=== PATIENT | female | born 1930 | race Two or more races ===

== ENCOUNTER 2019-09-06 10:44 | Inpatient (IN) | payer OTHER, MEDICARE ==
[~2019-09-06] VITALS: Ht 167.6 cm; Wt 61.2 kg
[~2019-09-06 10:44] MED LIST: AMIODARONE HCL200 MG ORAL; AMIODARONE HCL400 M1 ORAL; AMLODIPINE BES2.5 MG ORAL; ASPIRIN EC81 MG ORAL; ATORVASTATIN CA10 MG ORAL; ATORVASTATIN CA20 MG ORAL; CRESTOR10 M1 ORAL; FENOFIBRIC ACI105 MG PO; FERROUS SULFAT325 MG ORAL; GLIMEPIRIDE1 MG ORAL; KEFLEX500 MG ORAL; LISINOPRIL5 MG ORAL; LOPRESSOR25 M1 ORAL; METOPROLOL SUCC50 MG ORAL; OYSCO 500+D TA1 EAC1 PO; SYNTHROID25 MCG ORAL; [UNRECOGNIZED DRUG - OTHER]
--- NOTE | 2019-09-06 10:52 | NUR ---
ED Nurse Note: Pt brought in by ambulance c/o lower abdominal pain 03/22 that radiates to her lower back x 2 weeks. Son is at bedside. Respirations even and unlabored on room air. Vitals stable as documented. Pt placed in monitored bed. Addendum: 09/06/19 at 1109 by BDUTTON Pt denies nausea/vomiting/diarrhea
[2019-09-06] MEDS ORDERED: IBUPROFEN600 MG ORAL (10:56)
[2019-09-06 11:12] VITALS: BP 128/73
--- NOTE | 2019-09-06 11:16 | Emergency Room Report ---
History of Present Illness General Chief Complaint: Abdominal Pain Source: Patient, EMS Present Illness HPI Patient is a 89-year-old female presents after increased left-sided flank pain. Patient had onset of symptoms gradually over the past few days. She been having nonproductive cough for approximate 1 week. Pain is worse with coughing. She has had intermittent episodes of constipation but had been having normal bowel movements lately. No vomiting. Pain is worse with movement. She is normally only able to ambulate with assistance. Patient had prior history of hip surgery and had prior history of hypothyroidism as well as diabetes. She takes amiodarone. Allergies: Coded Allergies: No Known Allergies (Unverified , 07/26/15) Patient History Past Medical History: see triage record Reviewed Nursing Documentation: PMH: Agreed; PSxH: Agreed Nursing Documentation-PMH Past Medical History: No History, Except For Hx Cardiac Problems: Yes Hx Hypertension: Yes Hx Pacemaker: Yes Hx Diabetes: Yes Hx Cancer: No Hx Gastrointestinal Problems: Yes Hx Neurological Problems: No Review of Systems All Other Systems: negative except mentioned in HPI Physical Exam Vital Signs Date Time Temp Pulse Resp B/P (MAP) Pulse Ox O2 Delivery O2 Flow Rate FiO2 09/06/19 10:40 97.5 71 18 149/75 (99) 99 Room Air Sp02 EP Interpretation: reviewed, normal General Appearance: normal inspection, alert, GCS 15, Chronically Ill Head: atraumatic ENT: normal ENT inspection, hearing grossly normal, normal voice Neck: normal inspection, full range of motion, supple, no bony tend Respiratory: normal inspection, lungs clear, normal breath sounds, no respiratory distress, no retraction, no wheezing Cardiovascular #1: regular rate, rhythm, no edema Gastrointestinal: normal inspection, normal bowel sounds, soft, no guarding, no hernia, tenderness - left lower abdomen, no hernia, surgical scar well healed Genitourinary: no CVA tenderness Musculoskeletal: normal inspection, back normal, normal range of motion Neurologic: alert, responsive, speech normal, normal inspection Psychiatric: normal inspection, judgement/insight normal, mood/affect normal Medical Decision Making Diagnostic Impression: Primary Impression: Closed compression fracture of lumbosacral spine Additional Impression: Urinary tract infection ER Course Patient presented for left lower abdominal pain and low back pain. Differential diagnosis include was not limited to fracture, diverticulitis, kidney stone, colitis among others. Because of complexity of patient's case laboratory tests and imaging studies were ordered. Patient was noted to have previous hip surgery. CT imaging read by radiology showed some cardiomegaly with bilateral pneumonitis. L2-L4 have age-indeterminate fractures. Patient was given IV fluids as well as IV antibiotics. Patient's lactic acid level was noted to be elevated initially. This was somewhat improved on repeat exam.Dr. Scott Gavin was contacted for inpatient management Labs Test 09/06/19 10:59 09/06/19 11:00 09/06/19 12:59 White Blood Count 6.5 K/UL (4.8-10.8) Red Blood Count 4.32 M/UL (4.20-5.40) Hemoglobin 14.3 G/DL (12.0-16.0) Hematocrit 39.3 % (37.0-47.0) Mean Corpuscular Volume 91 FL (80-99) Mean Corpuscular Hemoglobin 33.1 PG (27.0-31.0) Mean Corpuscular Hemoglobin Concent 36.4 G/DL (32.0-36.0) Red Cell Distribution Width 11.6 % (11.6-14.8) Platelet Count 179 K/UL (150-450) Mean Platelet Volume 4.8 FL (6.5-10.1) Neutrophils (%) (Auto) 69.7 % (45.0-75.0) Lymphocytes (%) (Auto) 19.8 % (20.0-45.0) Monocytes (%) (Auto) 7.6 % (1.0-10.0) Eosinophils (%) (Auto) 2.1 % (0.0-3.0) Basophils (%) (Auto) 0.8 % (0.0-2.0) Prothrombin Time 10.1 SEC (9.30-11.50) Prothromb Time International Ratio 0.9 (0.9-1.1) Activated Partial Thromboplast Time 24 SEC (23-33) Sodium Level 141 MMOL/L (136-145) Potassium Level 3.2 MMOL/L (3.5-5.1) Chloride Level 105 MMOL/L (98-107) Carbon Dioxide Level 21 MMOL/L (21-32) Anion Gap 15 mmol/L (5-15) Blood Urea Nitrogen 21 mg/dL (7-18) Creatinine 1.1 MG/DL (0.55-1.30) Estimat Glomerular Filtration Rate mL/min (>60) Glucose Level 325 MG/DL (74-106) Calcium Level 8.7 MG/DL (8.5-10.1) Total Bilirubin 0.9 MG/DL (0.2-1.0) Aspartate Amino Transf (AST/SGOT) 27 U/L (15-37) Alanine Aminotransferase (ALT/SGPT) 27 U/L (12-78) Alkaline Phosphatase 111 U/L (46-116) Troponin I 0.019 ng/mL (0.000-0.056) Total Protein 7.4 G/DL (6.4-8.2) Albumin 3.9 G/DL (3.4-5.0) Globulin 3.5 g/dL Albumin/Globulin Ratio 1.1 (1.0-2.7) Lipase 110 U/L (73-393) Urine Color Yellow Urine Appearance Clear Urine pH 6 (4.5-8.0) Urine Specific [place] 1.015 (1.005-1.035) Urine Protein 2+ (NEGATIVE) Urine Glucose (UA) 2+ (NEGATIVE) Urine Ketones 1+ (NEGATIVE) Urine Blood 4+ (NEGATIVE) Urine Nitrite Negative (NEGATIVE) Urine Bilirubin 1+ (NEGATIVE) Urine Ictotest Negative (NEGATIVE) Urine Urobilinogen 1 MG/DL (0.0-1.0) Urine Leukocyte Esterase 3+ (NEGATIVE) Urine RBC 2-4 /HPF (0 - 2) Urine WBC 5-10 /HPF (0 - 2) Urine Squamous Epithelial Cells Few /LPF (NONE/OCC) Urine Bacteria Moderate /HPF (NONE) Lactic Acid Level 2.20 mmol/L (0.66-2.22) Last Vital Signs Date Time Temp Pulse Resp B/P (MAP) Pulse Ox O2 Delivery O2 Flow Rate FiO2 09/06/19 10:40 97.5 71 18 149/75 (99) 99 Room Air Status: unchanged Disposition: ADMITTED INPATIENT Condition: Stable Damien Crowe MD Sep 06, 2019 11:16
[2019-09-06 11:27] LABS: BASOPHILS % (AUTO) 0.8 % (0.0-2.0); EOSINOPHILS % (AUTO) 2.1 % (0.0-3.0); HEMATOCRIT 39.3 % (37.0-47.0); HEMOGLOBIN 14.3 G/DL (12.0-16.0); LYMPHOCYTES % (AUTO) 19.8 % (20.0-45.0); MEAN CORPUSCULAR VOLUME 91 FL (80-99); MONOCYTES % (AUTO) 7.6 % (1.0-10.0); NEUTROPHILS % (AUTO) 69.7 % (45.0-75.0); PLATELET COUNT 179 K/UL (150-450); RED BLOOD COUNT 4.32 M/UL (4.20-5.40); RED CELL DISTRIBUTION WIDTH 11.6 % (11.6-14.8); WHITE BLOOD COUNT 6.5 K/UL (4.8-10.8)
[2019-09-06 11:29] LABS: APPEARANCE,URINE CLEAR; BILIRUBIN, URINE 1+ (NEGATIVE); GLUCOSE, URINE (UA) 2+ (NEGATIVE); KETONES,URINE 1+ (NEGATIVE); LEUKOCYTE ESTERASE ,URINE 3+ (NEGATIVE); NITRITE,URINE NEGATIVE (NEGATIVE); PH,URINE 6 (4.5-8.0); PROTEIN,URINE 2+ (NEGATIVE); UROBILINOGEN,URINE 1 MG/DL (0.0-1.0)
[2019-09-06] MEDS ORDERED: Morphine Sulfate 2mg/ml Inj(IV/IM USE ONLY) IVP ONE (11:30)
[2019-09-06] MEDS ORDERED: Omnipaque-300 100ml vial INJ PRN (11:30)
[2019-09-06 11:33] LABS: INR 0.9 (0.9-1.1)
[2019-09-06 11:41] LABS: ANION GAP 15 mmol/L (5-15); BLOOD UREA NITROGEN 21 mg/dL (7-18); CALCIUM 8.7 MG/DL (8.5-10.1); CARBON DIOXIDE 21 MMOL/L (21-32); CHLORIDE 105 MMOL/L (98-107); CREATININE 1.1 MG/DL (0.55-1.30); POTASSIUM 3.2 MMOL/L (3.5-5.1); SODIUM 141 MMOL/L (136-145)
--- NOTE | 2019-09-06 11:43 | NUR ---
ED Nurse Note: Contrast consent signed by pt's son and witnessed by RN
[2019-09-06 11:45] LABS: ALANINE AMINOTRANSFERASE 27 U/L (12-78); ALBUMIN 3.9 G/DL (3.4-5.0); ALBUMIN/GLOBULIN RATIO 1.1 (1.0-2.7); ALKALINE PHOSPHATASE 111 U/L (46-116); ASPARTATE AMINO TRANSFERASE 27 U/L (15-37); BILIRUBIN,TOTAL 0.9 MG/DL (0.2-1.0)
[2019-09-06 11:49] LABS: COLOR,URINE YELLOW
[2019-09-06] MEDS ORDERED: cefTRIAXone 1 GM in NS 55 ML IVPB ONE (12:15)
--- NOTE | 2019-09-06 12:15 | NUR ---
ED Nurse Note: Pt in CT
[2019-09-06 12:50] VITALS: BP 161/79
--- NOTE | 2019-09-06 12:50 | Diagnostic Imaging Report ---
EXAM: CT Abdomen and Pelvis With Intravenous Contrast CLINICAL HISTORY: ABD PAIN TECHNIQUE: Axial computed tomography images of the abdomen and pelvis with intravenous contrast. CTDI is 12.3 mGy and DLP is 688.5 mGy-cm. One or more of the following dose reduction techniques were used: automated exposure control, adjustment of the mA and/or kV according to patient size, use of iterative reconstruction technique. COMPARISON: No relevant prior studies available. FINDINGS: Lung bases: Basilar pneumonitis. Heart: Cardiomegaly and pacemaker. ABDOMEN: Liver: Nonspecific enhancing lesion at the dome of the liver, measures approximately 1 cm. Small low-attenuation focus in the left lobe. Gallbladder and bile ducts: Cholecystectomy. Pancreas: Unremarkable. Spleen: Unremarkable. Adrenals: Unremarkable. Kidneys and ureters: Unremarkable. No hydronephrosis. Stomach and bowel: No rio mural thickening. Nonobstructive bowel gas pattern. PELVIS: Appendix: Appendix not identified. Bladder: Unremarkable. Reproductive: Unremarkable. ABDOMEN and PELVIS: Intraperitoneal space: Unremarkable. Bones/joints: Left hip fixation. Tarlov cysts in the sacrum. Old fracture of the left inferior and superior pubic rami. Old left rib fractures. Fractures of the L2-L4 vertebral bodies with probable acute component at the L4 level Soft tissues: Unremarkable. Vasculature: Unremarkable. No abdominal aortic aneurysm. Lymph nodes: No enlarged lymph nodes. IMPRESSION: Appendix not identified. No colitis.
[2019-09-06 14:56] VITALS: BP 164/90
--- NOTE | 2019-09-06 17:54 | NUR ---
ED Nurse Note: Report given to Isaiah on 2E
[2019-09-06] MEDS ORDERED: Morphine Sulfate 4mg/ml Inj (IV USE ONLY) IVP PRN (18:15)
[2019-09-06] MEDS ORDERED: Zolpidem 5mg tab ORAL PRN (18:15)
--- NOTE | 2019-09-06 18:24 | History & Physical ---
History and Physical History & Physicial HP dictated # [id number] Scott Gavin MD Sep 06, 2019 18:24
--- NOTE | 2019-09-06 18:30 | NUR ---
ED Nurse Note: Pt transferred safely to 2E on car wrecker.
[2019-09-06 19:00] VITALS: BP 153/93
--- NOTE | 2019-09-06 20:00 | NUR ---
NURSE NOTES: Report received from Kasandra GILBERT. Patient is observed in bed, awake, alert, oriented, and able to make needs known. Respiratory even and unlabored. Patient is complaining of abdominal pain; will address as appropriate. Bed is in lowest position with side rails up x2 and brakes are engaged. Encouraged patient to use call light when in need of assistance, pt verbalized understanding. Will continue to monitor.
[2019-09-06] MEDS: Morphine Sulfate 2mg/ml Inj(IV/IM USE ONLY) IVP PRN (20:02)
[2019-09-06] MEDS: NovoLOG Insulin Flexpen SUBQ SCH (21:28)
[2019-09-06] MEDS: Zoysn 3.37gm in NS 100ML IVPB SCH (21:55)
[2019-09-07] VITALS: BP 160/95
[2019-09-07] MEDS: Morphine Sulfate 2mg/ml Inj(IV/IM USE ONLY) IVP PRN (01:40)
--- NOTE | 2019-09-07 02:11 | History and Physical Report ---
DATE OF ADMISSION: 09/06/2019 CHIEF COMPLAINT: Abdominal pain. HISTORY OF PRESENT ILLNESS: This is an 89-year-old female, who lives at home. Son who is at bedside tells me that for the past 2 weeks, she has had problems with lower abdominal pain and also low back pain and unable to move around. She usually walks with a walker, but it has been difficult. Few years ago, she had a fall when she fractured her left hip and left arm and she underwent surgery. Since then, she has been walking with a walker. The patient was seen in the emergency room and was found to have urinary tract infection and admitted. PAST MEDICAL HISTORY: Includes history of hypothyroidism and diabetes mellitus. The patient is status post pacemaker and history of hypertension. MEDICATIONS: Reviewed in the EMR. ALLERGIES: No known drug allergies. SOCIAL HISTORY: No history of smoking or alcohol abuse. REVIEW OF SYSTEMS: As above. PHYSICAL EXAMINATION: GENERAL: The patient is an elderly female, in no acute distress. VITAL SIGNS: Blood pressure 129/75, pulse is 71, respiratory rate 18, and temperature 97.5. HEENT: [place] conjunctivae. Anicteric sclerae. NECK: Supple. LUNGS: Clear to auscultation. HEART: S1 and S2 without murmurs or rubs. ABDOMEN: Soft. There is some tenderness in the lower abdomen. EXTREMITIES: No cyanosis or edema. LABORATORY FINDINGS: The chemistry panel shows a serum sodium 141, potassium 3.2, chloride 105, carbon dioxide 21, BUN is 21, and creatinine 1.1. Blood sugar is 325. The UA shows 5 to 10 wbc's per high-power field with moderate bacteria. ASSESSMENT: This is an 89-year-old female, who is admitted with abdominal pain. She has urinary tract infection. She may also have some degenerative joint disease of the spine. As a matter of fact, a CAT scan, which was done in the emergency room of the abdomen showed fracture of the L2-L4 vertebral bodies with probable acute component at the L4 level. So, she may have also pain in her lower back because of these fractures. PLAN: The patient will be on pain medications. Physical therapy will be ordered. She will be on antibiotics. GI consultation will be obtained as well as Neurology. Laboratories will be followed and further adjustment will be made in the patient's regimen. Scott Gavin M.D. DR: JOSE ALEJANDRO JOB#: [id number] CC: MONA
--- NOTE | 2019-09-07 03:46 | NUR ---
NURSE NOTES: Contacted Dr. Gavin regarding patient's elevated blood pressure of 172/98 and episodes of emesis x2. Awaiting call back.
--- NOTE | 2019-09-07 03:50 | NUR ---
NURSE NOTES: Primary MD called back. No new orders noted at this time.
[2019-09-07 03:57] VITALS: BP 172/98
[2019-09-07] MEDS: Zoysn 3.37gm in NS 100ML IVPB SCH ×3 (05:57→21:14)
[2019-09-07] MEDS: NovoLOG Insulin Flexpen SUBQ SCH ×4 (06:00→21:15)
--- NOTE | 2019-09-07 06:33 | NUR ---
NURSE NOTES: Patient is asleep but arousable by voice. Denies pain at this time. Will continue to monitor.
--- NOTE | 2019-09-07 07:27 | NUR ---
HAND-OFF: Report given to Wendy GILBERT. Patient is in stable condition. Endorsed plan of care.
--- NOTE | 2019-09-07 08:10 | NUR ---
NURSE NOTES: pt in bed having breakfast. Aox4. pt reports no pain. pt on cardia monitor no signs of cardiac or respiratory distress at this time. Bed in lowest position. Call light within reach. Will continue to follow plans of care.
[2019-09-07 08:20] VITALS: BP 140/79
[2019-09-07 09:01] LABS: ANION GAP 13 mmol/L (5-15); BLOOD UREA NITROGEN 10 mg/dL (7-18); CALCIUM 8.3 MG/DL (8.5-10.1); CARBON DIOXIDE 23 MMOL/L (21-32); CHLORIDE 105 MMOL/L (98-107); CHOLESTEROL 143 MG/DL (< 200); CREATININE 0.8 MG/DL (0.55-1.30); HDL CHOLESTEROL 55 MG/DL (40-60); SODIUM 141 MMOL/L (136-145); TRIGLYCERIDES 113 MG/DL (30-150)
[2019-09-07 09:02] LABS: POTASSIUM 2.6 MMOL/L (3.5-5.1)
--- NOTE | 2019-09-07 13:02 | General Progress Note ---
Assessment/Plan Problem List: (1) Closed compression fracture of lumbosacral spine ICD Codes: S32.000A - Wedge compression fracture of unspecified lumbar vertebra , initial encounter for closed fracture SNOMED: 38964350, 739172640 (2) DM (diabetes mellitus) ICD Codes: E11.9 - Type 2 diabetes mellitus without complications SNOMED: 43858107 (3) Degenerative joint disease (DJD) of lumbar spine ICD Codes: M47.816 - Spondylosis without myelopathy or radiculopathy, lumbar region SNOMED: 863462819 (4) Hypothyroidism ICD Codes: E03.9 - Hypothyroidism, unspecified SNOMED: 35725690 (5) HTN (hypertension) ICD Codes: I10 - Essential (primary) hypertension SNOMED: 64550047 (6) Pacemaker ICD Codes: Z95.0 - Presence of cardiac pacemaker SNOMED: 428502111 (7) Urinary tract infection ICD Codes: N39.0 - Urinary tract infection, site not specified SNOMED: 46230365 (8) Hypokalemia ICD Codes: E87.6 - Hypokalemia SNOMED: 08909974 Assessment/Plan: abxs SSI follow labs Nuero consult discussed with pt and family and RN replete K Subjective Allergies: Coded Allergies: No Known Allergies (Unverified , 07/26/15) Subjective abd pain better still with back pain Objective Last 24 Hour Vital Signs Date Time Temp Pulse Resp B/P (MAP) Pulse Ox O2 Delivery O2 Flow Rate FiO2 09/07/19 08:20 97.7 72 20 140/79 (99) 98 09/07/19 03:57 98.5 80 18 172/98 (122) 96 09/07/19 03:48 70 09/07/19 00:00 98.0 75 18 160/95 (116) 96 09/06/19 23:59 70 09/06/19 21:00 Room Air 09/06/19 20:14 70 09/06/19 19:00 97.8 70 18 153/93 (113) 96 09/06/19 18:29 98.4 70 18 148/110 99 Room Air 09/06/19 14:56 74 18 164/90 99 Room Air Intake and Output 09/06/19 09/07/19 19:00 07:00 Intake Total 1555 ml Balance 1555 ml Intake IV Total 1555 ml # Voids 2 Laboratory Tests 09/06/19 12:59: Lactic Acid Level 2.20 09/07/19 07:04: Sodium Level 141, Potassium Level 2.6*L, Chloride Level 105, Carbon Dioxide Level 23, Anion Gap 13, Blood Urea Nitrogen 10, Creatinine 0.8, Estimat Glomerular Filtration Rate , Glucose Level 234H, Hemoglobin A1c 7.2H, Calcium Level 8.3L, Triglycerides Level 113, Cholesterol Level 143, LDL Cholesterol 70, HDL Cholesterol 55, Cholesterol/HDL Ratio 2.6L, Thyroid Stimulating Hormone (TSH ) 2.490 Height (Feet): 5 Height (Inches): 6.00 Weight (Pounds): 135 Cardiovascular: normal rate Respiratory/Chest: lungs clear Abdomen: non tender, soft Edema: no edema noted Generalized Scott Gavin MD Sep 07, 2019 13:01
--- NOTE | 2019-09-07 14:00 | Consultation ---
DATE OF CONSULTATION: 09/07/2019 CONSULTING PHYSICIAN: Taurus Bonilla M.D. CHIEF COMPLAINT: Abdominal pain. HISTORY OF PRESENT ILLNESS: This is an 89-year-old female who was brought from home that she has been having some abdominal pain and lower back pain for last 2 weeks or so. She has prior history of fall and pelvic fracture in the past. At this time, the patient denies any nausea or vomiting. Denies any dysphagia. Denies any odynophagia. When I examined her or asked where is the pain, states mainly in the back. PAST MEDICAL HISTORY: 1. Hypothyroidism. 2. Diabetes. 3. History of pacemaker placement. 4. Hypertension. 5. History of pelvic fracture. 6. Cholecystectomy. ALLERGIES: No known drug allergies. MEDICATIONS: Please see medication reconciliation list. SOCIAL HISTORY: The patient denies any tobacco, alcohol, or drug abuse. PAST SURGICAL HISTORY: Cholecystectomy. REVIEW OF SYSTEMS: A 10-point review of systems was performed. Pertinent positives in HPI. PHYSICAL EXAMINATION: VITAL SIGNS: Temperature is 98.5, pulse is 80, respirations 18, blood pressure is 172/98. HEENT: Normocephalic, atraumatic. Sclerae anicteric. NECK: Supple. No evidence of obvious lymphadenopathy. CARDIOVASCULAR: Regular rate and rhythm. Plus S1 and S2. LUNGS: Clear to auscultation bilaterally. ABDOMEN: Positive bowel sounds. Soft and nontender. No rebound. No guarding. No peritoneal sign. EXTREMITIES: No cyanosis, no clubbing, no edema. LABORATORY DATA: White count is 6.5, hemoglobin 14, hematocrit 39, platelet count is 179. Chem-7 sodium 141, potassium 3.2, BUN is 21, creatinine is 1.1. ASSESSMENT AND PLAN: This is an 89-year-old female admitted to the hospital with mainly pain. Seems that her pain is mostly in the back area. At this time, the patient does not have any alarming sign and symptoms. No abnormal liver function tests. No anemia. CT of the abdomen and pelvis did not show any acute intra-abdominal process. At this time, we will recommend continue on diet of 1800 ADA diet, monitor her blood sugar. Continue on Protonix, which is ordered by primary care physician. May need a bowel regimen including Colace and MiraLAX if the patient complains of constipation. The patient is to worked up for the complaint of back pain. We will follow on daily basis and make further recommendation as we go along. Taurus Bonilla M.D. DR: AGUILA JOB#: [id number] CC:
--- NOTE | 2019-09-07 14:42 | Consultation ---
Consult Note Consult Note NEUROLOGY CONSULTATION HISTORY Ms. Tori Silveira is an 89-year-old, right- handed, lady, who does have a past history of hypertension, diabetes mellitus, hypothyroidism, ago during which she fractured her left upper and lower extremities, pacemaker implantation for reasons that are unknown to us, and progressive gait problems. Recently she has also been complaining of increasing low back pain and she was hospitalized for worsening low back and abdominal pain. On being evaluated she was found to have a urinary tract infection and is being treated for that. Since she had her left upper and lower extremity fracture a few years ago she has only been doing minimal walking. She complains of pain in her back, weakness in the legs, and poor balance as a result of which she prefers not to walk. When asked where exactly the pain in the back is she localizes it to the lower lumbar region. She denies any problems with controlling bowel or bladder or any other neurological symptoms. When the radiologist read her chest and abdomen CT scan, fractures of the L2-L4 vertebral bodies with probable acute component at the L4 level was noted. PAST HISTORY: Hypertension, diabetes mellitus, hypothyroidism, ago during which she fractured her left upper and lower extremities, pacemaker implantation for reasons that are unknown to us, and progressive gait problems. FAMILY HISTORY: Hypertension and diabetes mellitus and other family members. PERSONAL HISTORY: Home: She lives at home with family members. Work: She is a retired housewife. Habits: There is no history of alcohol tobacco or illicit drug use. PHYSICAL EXAMINATION: GENERAL: She is a well-developed, well-nourished, pleasant, lady, lying in bed, in no acute distress. VITAL SIGNS: Pulse: 72/min Blood pressure: 140/79 mmHg. Respirations: 20/min Temperature: 97.7 F HEAD: Normocephalic and atraumatic. NECK: No neck rigidity was observed, she did have decreased range of motion involving the neck. EENT examination: Benign SPINE: She had mild generalized tenderness over the entire spine most marked in the lower lumbar region. There was marked decrease in range of motion in the entire spine. NEUROLOGICAL EXAMINATION: MENTAL STATUS EXAMINATION: She was awake and alert. She was oriented to self, hospital, and August 2019. She did not know the name of the hospital or the date. She was able to recall 3/3 words immediately but could only remember 2/3 after 1 minute and 3 minutes even on the third trial. She knew that Rain was president but could not remember presidents prior to Trump. Her mathematical skills were impaired. Her visuospatial function was also impaired. SPEECH: She had a mild dysarthria. It should be noted that numerous teeth were missing. LANGUAGE: She was able to comprehend and express herself relatively well in [place]. CRANIAL NERVE EXAMINATION: II: The visual padron were intact on confrontation testing. III, IV & : The external ocular movements were full and the pupils 3 mm in diameter equal round regular and reactive sluggishly to light. V: She had normal facial sensations and the temporales, masseters, and pterygoids, functioned normally. VII: She had normal facial expressions and no facial asymmetry. VIII: Hearing was markedly diminished bilaterally she did wear a right hearing aid. She had no nystagmus. IX: The palate moves symmetrically on phonation. X: She had no hoarseness of voice. XI: The sternocleidomastoids and trapezii functioned well. XII: The tongue was in the midline without any fasciculations or atrophy. MOTOR SYSTEM: The tone was normal in all 4 extremities. Examination of muscle mass revealed generalized muscle wasting most marked in the distal lower extremities. Examination of power revealed G 5/5 except for G 4++/5 in the finger extensors, G 4/5 in the iliopsoas, G 4+/5 in the toe extensors and ankle dorsiflexors. The effort was suboptimal and thus the accuracy of these findings is not certain. SENSORY EXAMINATION: She was able to discern between pinprick and light touch all over her body. She was unable to cooperate further sensory modalities. REFLEXES: Trace+ and bilaterally symmetrical at the biceps triceps and brachioradialis. 0 at both knees and ankles. The plantar responses were flexor. COORDINATION: She performed xpijni-qk-[id number] testing slowly but not in the dysmetric manner. She was unable to perform [id number]-ijeg testing. STANCE: She stood up with support on both sides. GAIT: She took a few steps with support on both sides. DIAGNOSTIC IMPRESSION: 1. Ms. Tori Silveira is an 89-year-old, right-handed, lady , who does have a past history of hypertension, diabetes mellitus, hypothyroidism, ago during which she fractured her left upper and lower extremities, pacemaker implantation for reasons that are unknown to us, and progressive gait problems. 2. Recently she has also been complaining of increasing low back pain and she was hospitalized for worsening low back and abdominal pain. On being evaluated she was found to have a urinary tract infection and is being treated for that. 3. On neurological examination, at this time, she does have problems with orientation, recent and remote memory, visuospatial function, and higher cognitive function. She also has a paraparesis involving the proximal muscles more than the distal muscles and in addition mild finger extensor weakness bilaterally. She is able to discern between pinprick and light touch but is unable to cooperate further sensory modalities. The deep tendon reflexes are significantly diminished in the upper extremities and lost in the lower extremities. She needs support on both sides to stand up. She only takes a few steps with support on both sides. She also complains of tenderness over the low lumbar region. 4. When the radiologist read her chest and abdomen CT scan, fractures of the L2- L4 vertebral bodies with probable acute component at the L4 level was noted. 5. The patient's low back pain is most probably related to significant lumbosacral degenerative joint disease. It is unclear if the patient does not fact have acute fractures that could be contributing. 6. The patient's gait disorder is most probably related to the low back pain, weakness in both lower extremities which may be related to a lumbosacral polyradiculopathy, and/or a neuropathy, and/or disuse and deconditioning. 7. The patient does also exhibit cognitive dysfunction. It is unknown if this is old or new. RECOMMENDATIONS: 1. The patient and her family were given an explanation of the above-mentioned findings. 2. If the patient's pacemaker is MRI safe then an MRI scan of the lumbosacral spine should be performed to evaluate the patient for lumbosacral spinal stenosis and/or a recent fracture. 3. She should be worked up thoroughly for treatable causes of neuropathy and cognitive dysfunction. 4. She should be mobilized with the help of physical and Occupational Therapy. Thank you for entrusting me with the care of Ms. Mayorga I shall follow her with you. Chris Candelario M.D., M.S.P.H. Neurologist and Clinical Neurophysiologist. Chris Candelario MD Sep 07, 2019 14:42
--- NOTE | 2019-09-07 15:45 | Consultation ---
DATE OF CONSULTATION: 09/07/2019 INFECTIOUS DISEASE CONSULTATION CONSULTING PHYSICIAN: Juliano Gavin M.D. PRIMARY ATTENDING PHYSICIAN: Scott Gavin M.D. REASON FOR CONSULTATION: UTI. HISTORY OF PRESENT ILLNESS: This is an 89-year-old female, admitted yesterday, complaining of lower abdominal and back pain. She had some constipation, coughing. The patient is usually incontinent and use diapers. PAST MEDICAL HISTORY: Diabetes mellitus, hypertension, status post pacemaker, hypothyroidism, history of left pelvic and arm fracture, difficulty of walking, kyphosis, history of cholecystectomy. ALLERGIES: No known drug allergies. MEDICATIONS: Getting potassium chloride, Zosyn, insulin, Tylenol, morphine sulfate, Protonix, Ambien. SOCIAL HISTORY: Originally from [place]. No history of alcohol, drug abuse, or smoking. Had 8 children, 1 because of cirrhosis, 1 in the accident. REVIEW OF SYSTEMS: No fever. No chills. No nausea. No vomiting, but had poor appetite yesterday. Appetite is better today. Has urinary incontinence. Has difficulty of walking. Has lower abdominal and back pain. PHYSICAL EXAMINATION: VITAL SIGNS: Temperature 97.7, pulse 72, blood pressure 140/79. GENERAL APPEARANCE: Seems to be in no acute distress. HEAD AND NECK: Has dentures. [place] conjunctivae. HEART: Normal rate. LUNGS: Clear. ABDOMEN: Soft, nontender. MUSCULOSKELETAL: Has kyphosis. Tenderness in the lower back. EXTREMITIES: Has no edema. NEUROLOGIC: She is awake, alert, verbal, oriented. LABORATORY AND DIAGNOSTIC DATA: WBC 6.5, hemoglobin 14.3, hematocrit 39.3, and platelets is 179,000. Sodium 141, potassium 2.6, chloride 105, bicarbonate 23, BUN 10, creatinine 0.8, glucose is 234. Urine culture growing gram-negative rods. CT scan of the abdomen and pelvis showed fracture of L2 and L4 vertebral bodies, probable acute component at the L4 level, status post cholecystectomy, and colitis. UA showed wbc's of 5 to 10, leukocyte esterase 3+, nitrite negative. IMPRESSION: UTI, likely cystitis. Had L2 and L4 vertebral body fractures. Has hypokalemia, hypertension, diabetes mellitus, hypothyroidism, kyphosis. RECOMMENDATION: Continue with Zosyn and follow up the cultures and narrow antibiotic. At the end of my exam, I thank Dr. Scott Gavin for involving me in the care of this patient. Juliano Gavin M.D. DR: SADI JOB#: [id number] CC:
--- NOTE | 2019-09-07 16:32 | Cardiology Progress Note ---
Assessment/Plan Assessment/Plan [id number] paf ppi for sss dm family will bringin pacer card not sure even if [facility] Last 24 Hour Vital Signs Date Time Temp Pulse Resp B/P (MAP) Pulse Ox O2 Delivery O2 Flow Rate FiO2 09/07/19 08:20 97.7 72 20 140/79 (99) 98 09/07/19 03:57 98.5 80 18 172/98 (122) 96 09/07/19 03:48 70 09/07/19 00:00 98.0 75 18 160/95 (116) 96 09/06/19 23:59 70 09/06/19 21:00 Room Air 09/06/19 20:14 70 09/06/19 19:00 97.8 70 18 153/93 (113) 96 09/06/19 18:29 98.4 70 18 148/110 99 Room Air Intake and Output 09/06/19 09/07/19 19:00 07:00 Intake Total 1555 ml Balance 1555 ml Intake IV Total 1555 ml # Voids 2 Laboratory Tests Test 09/07/19 07:04 09/07/19 15:20 Sodium Level 141 MMOL/L (136-145) Potassium Level 2.6 MMOL/L (3.5-5.1) *L Chloride Level 105 MMOL/L (98-107) Carbon Dioxide Level 23 MMOL/L (21-32) Anion Gap 13 mmol/L (5-15) Blood Urea Nitrogen 10 mg/dL (7-18) Creatinine 0.8 MG/DL (0.55-1.30) Estimat Glomerular Filtration Rate mL/min (>60) Glucose Level 234 MG/DL (74-106) H Hemoglobin A1c 7.2 % (4.3-6.0) H Calcium Level 8.3 MG/DL (8.5-10.1) L Triglycerides Level 113 MG/DL (30-150) Cholesterol Level 143 MG/DL (< 200) LDL Cholesterol 70 mg/dL (<100) HDL Cholesterol 55 MG/DL (40-60) Cholesterol/HDL Ratio 2.6 (3.3-4.4) L Thyroid Stimulating Hormone (TSH) 2.490 uiU/mL (0.358-3.740) Erythrocyte Sedimentation Rate Pending Total Protein (PEP) Pending Albumin (PEP) Pending Globulin (PEP) Pending Albumin/Globulin Ratio Pending Lcshz-0-Gtofwxlcy Pending Prrvc-8-Vhmgsnwmn Pending Beta Globulins Pending Beta Gamma Globulin Pending PEP Abnormal Protein Bands Pending Protein Electrophoresis Interpret Pending Vitamin B12 Level Pending Folate Pending Rapid Plasma Reagin Pending Microbiology Date/Time Source Procedure Growth Status 09/06/19 11:00 Urine,Clean Catch Urine Culture - Preliminary Gram Negative Bacillus 1 Resulted Clement Clinton MD Sep 07, 2019 16:32
[2019-09-07] MEDS ORDERED: Piperacillin/Tazobactam 2.25 GM in D5W 55 ML IVPB SCH (18:30)
--- NOTE | 2019-09-07 18:45 | Consultation ---
DATE OF CONSULTATION: 09/07/2019 CARDIOLOGY CONSULTATION CONSULTING PHYSICIAN: Clement Clinton M.D. REFERRING PHYSICIAN: Scott Gavin M.D. REASON FOR REFERRAL: Need of MRI in the setting of pacemaker. HISTORY OF PRESENT ILLNESS: This is an elderly female, whose information is obtained from the review of the patient's chart as well as my discussion with the patient through one of the family members who speak [place] and is aware of. The patient has a history of multiple medical problems as delineated below. The patient presented to the hospital because of increasing back pain that has been going on for approximately 2 weeks. On detailed questioning, the patient does not have any chest pain on exertion. Does not have any PND or orthopnea. Uses 2 pillows for comfort. No dizziness or lightheadedness at this time although she has had that before. She does have shortness of breath on exertion. No chest pain. 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 Apparently she has had a history of lumbar fractures noted on studies performed in [place] back in 2015. Hypothyroidism as mentioned. She has had a proximal humerus fracture back in 2015 that was fixed at [facility]. 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 SOCIAL HISTORY: She apparently lives here with her daughter. She does not smoke or drink alcoholic beverages. REVIEW OF SYSTEMS: GASTROINTESTINAL: She had a bout of vomiting today, otherwise no bloody stools or black tarry stools. GENITOURINARY: Denies. PULMONARY: She does have a cough nonproductive. CONSTITUTIONAL: Negative. PHYSICAL EXAMINATION: GENERAL: Shows to be an elderly female, in no respiratory distress. She has a hard time trying to sit up. NECK: Supple. No jugular venous distention. LUNGS: Clear to auscultation and percussion. CARDIAC: S1 is normal. S2 is normal. Regular rate and rhythm. No heaves, thrills, or gallops noted. ABDOMEN: Soft, nontender. Positive bowel sounds. EXTREMITIES: There is no clubbing, cyanosis, or edema. NEUROLOGICAL: She is awake, alert, responsive, and in no apparent respiratory distress. LABORATORY AND DIAGNOSTIC DATA: Her white count 6.5, hemoglobin 14.3, and platelet count of 179. Sodium is 141, potassium 3.6, chloride 105, bicarb 22, BUN of 10, creatinine 0.8, glucose of 232. A1c of 7.2, calcium is 8.3. Total cholesterol 142 with LDL of 78, HDL of 55. TSH of 2.49. Coags INR 0.9, PTT of 24. Urinalysis 5 to 10 wbc's, 2 to 4 rbc's, 2 to 3+ leukocyte esterase. The patient on telemetry shows atrial paced ventricular sensed. Her EKG basically shows again the same thing atrial paced ventricular sensed, T-waves inversions in V4, V5, and V6. As noted, there are Q-waves in leads 1 and aVL, may be suggestive of old inferior [place] laterally. She has also had a CT scan of her abdomen and pelvis that basically showed appendix not identified. No colitis. She was noted to have fracture of L2 through L4 vertebral bodies with probable acute component of the L4. Left hip fixation being noted. ASSESSMENT AND PLAN: 1. History of paroxysmal episodes of atrial fibrillation. 2. Tachy-armin syndrome, status post permanent pacemaker implantation. Device not known. 3. History of chronic and acute compression fractures. 4. Diabetes mellitus type 2. 5. History of humeral fracture. Dr. Gavin, this patient was seen in cardiac consultation. The patient does have a pacemaker. Unfortunately the type of which is not yet known. The information maybe available on the card that one of the family members has, but is not available at this time. I have instructed the family to call the nursing staff to notify me once the pacemaker card is available so I can notify the patient's company to check whether this is a MRI compatible or not. In either case, I am not sure even with the MRI compatible device that it is incapable of being performed here at this hospital. The patient should be continued on her usual dose of anticoagulations as long as no contraindication for her previous history of atrial fibrillation that she had on prior occasions if that was the case previously. She is on amiodarone apparently at home and Lipitor and I do not see Eliquis being listed as one of her medications at this time, but she has been on it on prior occasions. Clement Clinton M.D. DR: ANGIE JOB#: [id number] CC:
--- NOTE | 2019-09-07 20:00 | NUR ---
NURSE NOTES: Report received from Wendy GILBERT. Patient is observed in bed, awake, alert, oriented, and able to make needs known. Respiratory even and unlabored. IVF is running at a prescribed rate. Patient denies pain at this time. Bed is in lowest position with side rails up x2 and brakes are engaged. Bed alarm is on. Will continue to monitor.
[2019-09-07 20:33] VITALS: BP 154/91
[2019-09-08] VITALS: BP 132/73
[2019-09-08 04:11] VITALS: BP 130/76
[2019-09-08] MEDS: Zoysn 3.37gm in NS 100ML IVPB SCH (05:58)
[2019-09-08] MEDS: NovoLOG Insulin Flexpen SUBQ SCH ×4 (06:01→21:00)
--- NOTE | 2019-09-08 07:36 | NUR ---
HAND-OFF: Report given to Isaiah. Patient is in stable condition. Endorsed plan of care.
[2019-09-08 07:44] LABS: BASOPHILS % (AUTO) 0.6 % (0.0-2.0); EOSINOPHILS % (AUTO) 3.9 % (0.0-3.0); HEMATOCRIT 34.7 % (37.0-47.0); HEMOGLOBIN 12.5 G/DL (12.0-16.0); LYMPHOCYTES % (AUTO) 22.2 % (20.0-45.0); MEAN CORPUSCULAR VOLUME 92 FL (80-99); MONOCYTES % (AUTO) 11.7 % (1.0-10.0); NEUTROPHILS % (AUTO) 61.7 % (45.0-75.0); PLATELET COUNT 146 K/UL (150-450); RED BLOOD COUNT 3.78 M/UL (4.20-5.40); RED CELL DISTRIBUTION WIDTH 12.5 % (11.6-14.8); WHITE BLOOD COUNT 6.3 K/UL (4.8-10.8)
[2019-09-08 08:00] VITALS: BP 133/75
[2019-09-08 08:22] LABS: ANION GAP 10 mmol/L (5-15); BLOOD UREA NITROGEN 12 mg/dL (7-18); CALCIUM 8.3 MG/DL (8.5-10.1); CARBON DIOXIDE 21 MMOL/L (21-32); CHLORIDE 111 MMOL/L (98-107); CREATININE 0.9 MG/DL (0.55-1.30); POTASSIUM 4.1 MMOL/L (3.5-5.1); SODIUM 142 MMOL/L (136-145)
--- NOTE | 2019-09-08 10:19 | NUR ---
SPRAY DRY OPERATOR CONSULT SW received a referral to assess suicide, abuse/neglect on 09/06/2019. SW met w/ pt and pt's son Jabier Fuchs on 09/08/2019. Pt's son Kary Fuchs was at pt's bedside. Pt is Yi speaking only. SW offered a conservation of resources commissioner but pt declined and wanted her son to be the physiotherapy aide. Pt wanted her son Mr. Jabier Fuchs to be there while SW conducts assessment. Pt presents as A&O 4x but pt wants her son Jabier Fuchs to be the primary decision maker. Pt has 8 children (2 ). Pt resides w/ her daughter [address], [place] [address]. Jabier Fuchs is residing in the same building, [address] PT receives IHSS and Jabier Fuchs is the IHSS care provider. PT receives no income. Pt utilizes walker for ambulation. Pt needs assistance w/ ADLs including bathing, dressing, cooking, and grooming. Pt denies hx of mental illness and currently denies SI/HI. There is no AD/POLST in the chart. Per Jabier, there is no AD but pt and her children discussed end of life in the past that all parties verbally agreed w/ DNR & DNI. WENDIE encouraged Jabier discuss POLST w/ . Jabier nodded. This SW believes there is no sign of SI/abuse/neglect at this time. Both pt and her son report no concern/issue/needs at this time. Pt plans to return home upon DC. Signed: 09/08/19 at 1030 by SUSHIL PRESSLEY <Co-Signature Required>
--- NOTE | 2019-09-08 10:30 | NUR ---
PT EVALUATION NOTE Patient seen for initial evaluation. Patient presents with generalized weakness and low back pain which impairs patient's ability to perform mobility tasks safely. Patient requires min assist and safety cues for bed mobility and transfers with FWW. Patient able to ambulate 25 ft with CGA and FWW, slowed velocity. Patient will benefit from skilled inpatient PT intervention to address strengthening, balance and safety for improved level of independence with functional mobility. Recommend discharge to SNF for short term rehab vs home with home PT once medically cleared by MD. Addendum: 09/08/19 at 1241 by PRINCESS TRAYLOR PT Amended: Links added.
--- NOTE | 2019-09-08 10:46 | Infectious Diseases Prog Note ---
Assessment/Plan Assessment/Plan IMPRESSION: UTI, likely cystitis. L2 and L4 vertebral body fractures. Hypokalemia, hypertension, diabetes mellitus, hypothyroidism, kyphosis. Paraparesis Unsteady gait Dementia RECOMMENDATION: Change Zosyn to Po Keflex Subjective ROS Limited/Unobtainable: Yes Musculoskeletal: Reports: pain, other - back pain Allergies: Coded Allergies: No Known Allergies (Unverified , 07/26/15) Objective Vital Signs Last 24 Hour Vital Signs Date Time Temp Pulse Resp B/P (MAP) Pulse Ox O2 Delivery O2 Flow Rate FiO2 09/08/19 08:36 Room Air 09/08/19 04:11 97.7 72 20 130/76 (94) 97 09/08/19 03:34 70 09/08/19 00:00 96.9 70 20 132/73 (92) 97 09/07/19 23:24 70 09/07/19 21:00 Room Air 09/07/19 20:33 98.8 71 20 154/91 (112) 95 09/07/19 19:01 70 09/07/19 16:00 70 09/07/19 12:00 72 Height (Feet): 5 Height (Inches): 6.00 Weight (Pounds): 135 General Appearance: no acute distress HEENT: mucous membranes moist Respiratory/Chest: lungs clear Cardiovascular: normal rate, pacemaker/AICD Abdomen: soft, non tender Extremities: no edema Neurologic/Psychiatric: alert, responsive, other - paraparesis Microbiology Date/Time Source Procedure Growth Status 09/06/19 11:55 Blood Blood Culture - Preliminary NO GROWTH AFTER 24 HOURS Resulted 09/06/19 10:59 Blood Blood Culture - Preliminary NO GROWTH AFTER 24 HOURS Resulted 09/06/19 11:00 Urine,Clean Catch Urine Culture - Final Escherichia Coli Complete Laboratory Tests Test 09/07/19 15:20 09/08/19 06:07 Erythrocyte Sedimentation Rate 45 MM/HR (0-30) H Total Protein (PEP) Pending Albumin (PEP) Pending Globulin (PEP) Pending Albumin/Globulin Ratio Pending Azjyt-1-Xlsyahvtb Pending Pnogs-0-Pvgxibrxv Pending Beta Globulins Pending Beta Gamma Globulin Pending PEP Abnormal Protein Bands Pending Protein Electrophoresis Interpret Pending Vitamin B12 Level 827 PG/ML (193-986) Folate 51.7 NG/ML (8.6-58.9) Rapid Plasma Reagin Pending White Blood Count 6.3 K/UL (4.8-10.8) Red Blood Count 3.78 M/UL (4.20-5.40) L Hemoglobin 12.5 G/DL (12.0-16.0) Hematocrit 34.7 % (37.0-47.0) L Mean Corpuscular Volume 92 FL (80-99) Mean Corpuscular Hemoglobin 33.1 PG (27.0-31.0) H Mean Corpuscular Hemoglobin Concent 36.1 G/DL (32.0-36.0) H Red Cell Distribution Width 12.5 % (11.6-14.8) Platelet Count 146 K/UL (150-450) L Mean Platelet Volume 5.3 FL (6.5-10.1) L Neutrophils (%) (Auto) 61.7 % (45.0-75.0) Lymphocytes (%) (Auto) 22.2 % (20.0-45.0) Monocytes (%) (Auto) 11.7 % (1.0-10.0) H Eosinophils (%) (Auto) 3.9 % (0.0-3.0) H Basophils (%) (Auto) 0.6 % (0.0-2.0) Sodium Level 142 MMOL/L (136-145) Potassium Level 4.1 MMOL/L (3.5-5.1) # Chloride Level 111 MMOL/L (98-107) H Carbon Dioxide Level 21 MMOL/L (21-32) Anion Gap 10 mmol/L (5-15) Blood Urea Nitrogen 12 mg/dL (7-18) Creatinine 0.9 MG/DL (0.55-1.30) Estimat Glomerular Filtration Rate mL/min (>60) Glucose Level 139 MG/DL (74-106) H Hemoglobin A1c 7.0 % (4.3-6.0) H Calcium Level 8.3 MG/DL (8.5-10.1) L Magnesium Level 1.9 MG/DL (1.8-2.4) Vitamin D 25-Hydroxy Pending 25-Hydroxy Vitamin D2 Pending 25-Hydroxy Vitamin D3 Pending Thyroid Stimulating Hormone (TSH) 2.282 uiU/mL (0.358-3.740) Current Medications Medications (Trade) Dose Ordered Sig/Yao Route PRN Reason Start Time Stop Time Status Last Admin Dose Admin Acetaminophen (Tylenol) 650 mg Q4H PRN ORAL Mild Pain (Pain Scale 1-3) 09/06/19 18:15 10/06/19 18:14 Dextrose (Dextrose 50%) 25 ml Q30M PRN IV Hypoglycemia 09/06/19 18:15 10/06/19 18:14 Dextrose (Dextrose 50%) 50 ml Q30M PRN IV Hypoglycemia 09/06/19 18:15 10/06/19 18:14 Insulin Aspart (NovoLOG) BEFORE MEALS AND HS SUBQ 09/06/19 21:00 10/06/19 20:59 09/07/19 21:15 Iohexol (OMNIPAQUE-300 100ml) 100 ml NOW PRN INJ Radiology Procedure 09/06/19 11:30 09/08/19 11:17 Morphine Sulfate (Morphine Sulfate) 2 mg EVERY 3 HOURS PRN IVP Moderate Pain (Pain Scale 4-6) 09/06/19 18:15 09/13/19 18:14 09/07/19 01:40 Morphine Sulfate (Morphine Sulfate) 4 mg EVERY 3 HOURS PRN IVP Severe Pain (Pain Scale 7-10) 09/06/19 18:15 09/13/19 18:14 Pantoprazole (Protonix) 40 mg DAILY ORAL 09/06/19 18:15 10/06/19 18:14 09/08/19 09:26 Piperacillin Sod/ Tazobactam Sod 3.375 gm/Sodium Chloride 110 ml @ 27.5 mls/hr EVERY 8 HOURS IVPB 09/06/19 22:00 09/11/19 21:59 09/08/19 05:58 Zolpidem Tartrate (Ambien) 5 mg DAILYPRN PRN ORAL Insomnia 09/06/19 18:15 09/13/19 18:14 Juliano Gavin MD Sep 08, 2019 10:46
--- NOTE | 2019-09-08 10:58 | Neurology Progress Note ---
Interim History Interim History Interim History Ms. Tori Silveira is an 89-year-old, right-handed, lady, who does have a past history of hypertension, diabetes mellitus, hypothyroidism , ago during which she fractured her left upper and lower extremities, pacemaker implantation for reasons that are unknown to us, and progressive gait problems. Recently she has also been complaining of increasing low back pain and she was hospitalized for worsening low back and abdominal pain. On being evaluated she was found to have a urinary tract infection and is being treated for that. She feels better today. The abdominal pain is better. The low back pain is about the same. She did walk with the PT a few minutes ago. She denies any new neurologic symptoms. Review of Systems Neuro Review of Systems Benign. Objective Physical Exam Last Vital Signs Date Time Temp Pulse Resp B/P (MAP) Pulse Ox O2 Delivery O2 Flow Rate FiO2 09/08/19 08:36 Room Air 09/08/19 04:11 97.7 72 20 130/76 (94) 97 Laboratory Tests Test 09/07/19 15:20 09/08/19 06:07 Erythrocyte Sedimentation Rate 45 MM/HR (0-30) H Total Protein (PEP) Pending Albumin (PEP) Pending Globulin (PEP) Pending Albumin/Globulin Ratio Pending [id number]-8-Zmahupebn Pending Osnxf-1-Aonxfphef Pending Beta Globulins Pending Beta Gamma Globulin Pending PEP Abnormal Protein Bands Pending Protein Electrophoresis Interpret Pending Vitamin B12 Level 827 PG/ML (193-986) Folate 51.7 NG/ML (8.6-58.9) Rapid Plasma Reagin Pending White Blood Count 6.3 K/UL (4.8-10.8) Red Blood Count 3.78 M/UL (4.20-5.40) L Hemoglobin 12.5 G/DL (12.0-16.0) Hematocrit 34.7 % (37.0-47.0) L Mean Corpuscular Volume 92 FL (80-99) Mean Corpuscular Hemoglobin 33.1 PG (27.0-31.0) H Mean Corpuscular Hemoglobin Concent 36.1 G/DL (32.0-36.0) H Red Cell Distribution Width 12.5 % (11.6-14.8) Platelet Count 146 K/UL (150-450) L Mean Platelet Volume 5.3 FL (6.5-10.1) L Neutrophils (%) (Auto) 61.7 % (45.0-75.0) Lymphocytes (%) (Auto) 22.2 % (20.0-45.0) Monocytes (%) (Auto) 11.7 % (1.0-10.0) H Eosinophils (%) (Auto) 3.9 % (0.0-3.0) H Basophils (%) (Auto) 0.6 % (0.0-2.0) Sodium Level 142 MMOL/L (136-145) Potassium Level 4.1 MMOL/L (3.5-5.1) # Chloride Level 111 MMOL/L (98-107) H Carbon Dioxide Level 21 MMOL/L (21-32) Anion Gap 10 mmol/L (5-15) Blood Urea Nitrogen 12 mg/dL (7-18) Creatinine 0.9 MG/DL (0.55-1.30) Estimat Glomerular Filtration Rate mL/min (>60) Glucose Level 139 MG/DL (74-106) H Hemoglobin A1c 7.0 % (4.3-6.0) H Calcium Level 8.3 MG/DL (8.5-10.1) L Magnesium Level 1.9 MG/DL (1.8-2.4) Vitamin D 25-Hydroxy Pending 25-Hydroxy Vitamin D2 Pending 25-Hydroxy Vitamin D3 Pending Thyroid Stimulating Hormone (TSH) 2.282 uiU/mL (0.358-3.740) Neurologic Exam Objective PHYSICAL EXAMINATION: GENERAL: She is a well-developed, well-nourished, pleasant, lady, lying in bed, in no acute distress. HEAD: Normocephalic and atraumatic. NECK: No neck rigidity was observed, she did have decreased range of motion involving the neck. EENT examination: Benign SPINE: She had mild generalized tenderness over the entire spine most marked in the lower lumbar region. There was marked decrease in range of motion in the entire spine. NEUROLOGICAL EXAMINATION: MENTAL STATUS EXAMINATION: She was awake and alert. She was oriented to self, hospital, and August 2019. She did not know the name of the hospital or the date. She was able to recall 3/3 words immediately but could only remember 2/3 after 1 minute and 3 minutes even on the third trial. She knew that Rain was president but could not remember presidents prior to Trromel. Her mathematical skills were impaired. Her visuospatial function was also impaired. SPEECH: She had a mild dysarthria. It should be noted that numerous teeth were missing. LANGUAGE: She was able to comprehend and express herself relatively well in [place]. CRANIAL NERVE EXAMINATION: II: The visual padron were intact on confrontation testing. III, IV & : The external ocular movements were full and the pupils 3 mm in diameter equal round regular and reactive sluggishly to light. V: She had normal facial sensations and the temporales, masseters, and pterygoids, functioned normally. VII: She had normal facial expressions and no facial asymmetry. VIII: Hearing was markedly diminished bilaterally she did wear a right hearing aid. She had no nystagmus. IX: The palate moves symmetrically on phonation. X: She had no hoarseness of voice. XI: The sternocleidomastoids and trapezii functioned well. XII: The tongue was in the midline without any fasciculations or atrophy. MOTOR SYSTEM: The tone was normal in all 4 extremities. Examination of muscle mass revealed generalized muscle wasting most marked in the distal lower extremities. Examination of power revealed G 5/5 except for G 4++/5 in the finger extensors, G 4/5 in the iliopsoas, G 4+/5 in the toe extensors and ankle dorsiflexors. The effort was suboptimal and thus the accuracy of these findings is not certain. SENSORY EXAMINATION: She was able to discern between pinprick and light touch all over her body. She was unable to cooperate further sensory modalities. REFLEXES: Trace+ and bilaterally symmetrical at the biceps triceps and brachioradialis. 0 at both knees and ankles. The plantar responses were flexor. COORDINATION: She performed jrlsks-kz-kikc testing slowly but not in the dysmetric manner. She was unable to perform [id number] testing. STANCE: She stood up with support on both sides. GAIT: She took a few steps with support on both sides. Impression/Recommendations Diagnostic Impression DIAGNOSTIC IMPRESSION: 1. Ms. Tori Silveira is an 89-year-old, right-handed, lady , who does have a past history of hypertension, diabetes mellitus, hypothyroidism, ago during which she fractured her left upper and lower extremities, pacemaker implantation for reasons that are unknown to us, and progressive gait problems. 2. Recently she has also been complaining of increasing low back pain and she was hospitalized for worsening low back and abdominal pain. On being evaluated she was found to have a urinary tract infection and is being treated for that. 3. She feels better today. The abdominal pain is better. The low back pain is about the same. She did walk with the PT a few minutes ago. She denies any new neurologic symptoms. 4. On neurological examination, at this time, she does have problems with orientation, recent and remote memory, visuospatial function, and higher cognitive function. She also has a paraparesis involving the proximal muscles more than the distal muscles and in addition mild finger extensor weakness bilaterally. She is able to discern between pinprick and light touch but is unable to cooperate further sensory modalities. The deep tendon reflexes are significantly diminished in the upper extremities and lost in the lower extremities. She needs support on both sides to stand up. She only takes a few steps with support on both sides. She also complains of tenderness over the low lumbar region. 5. When the radiologist read her chest and abdomen CT scan, fractures of the L2- L4 vertebral bodies with probable acute component at the L4 level was noted. 6. The patient's low back pain is most probably related to significant lumbosacral degenerative joint disease. It is unclear if the patient does not fact have acute fractures that could be contributing. 7. The patient's gait disorder is most probably related to the low back pain, weakness in both lower extremities which may be related to a lumbosacral polyradiculopathy, and/or a neuropathy, and/or disuse and deconditioning. 8. The patient does also exhibit cognitive dysfunction. It is unknown if this is old or new. Recommendations RECOMMENDATIONS: 1. The patient and her family were given an explanation of the above-mentioned findings. 2. If the patient's pacemaker is MRI safe then an MRI scan of the lumbosacral spine should be performed to evaluate the patient for lumbosacral spinal stenosis and/or a recent fracture. 3. She should be worked up thoroughly for treatable causes of neuropathy and cognitive dysfunction. 4. She should be mobilized with the help of physical and Occupational Therapy. Chris Candelario M.D., M.S.P.H. Neurologist and Clinical Neurophysiologist. Chris Candelario MD Sep 08, 2019 10:58
--- NOTE | 2019-09-08 11:08 | NUR ---
NURSE NOTES: pt sitting on chair, family at bedside. AOx4. Pt reports no pain right now. Pt on monitor worker, no signs of cardiac or respiratory distress at this time. Bed in lowest position and locked. Call light within reach. Will continue to follow plans of care.
[2019-09-08 12:00] VITALS: BP 130/72
[2019-09-08] MEDS: Cephalexin 500mg cap ORAL SCH ×3 (12:00→21:56)
--- NOTE | 2019-09-08 12:12 | General Progress Note ---
Assessment/Plan Problem List: (1) Closed compression fracture of lumbosacral spine ICD Codes: S32.000A - Wedge compression fracture of unspecified lumbar vertebra , initial encounter for closed fracture SNOMED: 89788877, 887650714 (2) DM (diabetes mellitus) ICD Codes: E11.9 - Type 2 diabetes mellitus without complications SNOMED: 08796294 (3) Degenerative joint disease (DJD) of lumbar spine ICD Codes: M47.816 - Spondylosis without myelopathy or radiculopathy, lumbar region SNOMED: 582417602 (4) Hypothyroidism ICD Codes: E03.9 - Hypothyroidism, unspecified SNOMED: 31508161 (5) HTN (hypertension) ICD Codes: I10 - Essential (primary) hypertension SNOMED: 01104345 (6) Pacemaker ICD Codes: Z95.0 - Presence of cardiac pacemaker SNOMED: 364059147 (7) Urinary tract infection ICD Codes: N39.0 - Urinary tract infection, site not specified SNOMED: 47262675 (8) Hypokalemia ICD Codes: E87.6 - Hypokalemia SNOMED: 81697437 Assessment/Plan: abxs SSI check Vit D follow labs Discussed with Dr Candelario awaconor clearance for MRI can go to the floor Subjective Allergies: Coded Allergies: No Known Allergies (Unverified , 07/26/15) Subjective abd pain better still with back pain Objective Last 24 Hour Vital Signs Date Time Temp Pulse Resp B/P (MAP) Pulse Ox O2 Delivery O2 Flow Rate FiO2 09/08/19 08:36 Room Air 09/08/19 04:11 97.7 72 20 130/76 (94) 97 09/08/19 03:34 70 09/08/19 00:00 96.9 70 20 132/73 (92) 97 09/07/19 23:24 70 09/07/19 21:00 Room Air 09/07/19 20:33 98.8 71 20 154/91 (112) 95 09/07/19 19:01 70 09/07/19 16:00 70 Intake and Output 09/07/19 09/08/19 19:00 07:00 # Bowel Movements 1 1 Laboratory Tests 09/07/19 15:20: Erythrocyte Sedimentation Rate 45H, Total Protein (PEP) [Pending], Albumin (PEP ) [Pending], Globulin (PEP) [Pending], Albumin/Globulin Ratio [Pending], Alpha-1 -Globulins [Pending], Mskkw-9-Warmhnrfw [Pending], Beta Globulins [Pending], Beta Gamma Globulin [Pending], PEP Abnormal Protein Bands [Pending], Protein Electrophoresis Interpret [Pending], Vitamin B12 Level 827, Folate 51.7, Rapid Plasma Reagin [Pending] 09/08/19 06:07: White Blood Count 6.3, Red Blood Count 3.78L, Hemoglobin 12.5, Hematocrit 34.7L , Mean Corpuscular Volume 92, Mean Corpuscular Hemoglobin 33.1H, Mean Corpuscular Hemoglobin Concent 36.1H, Red Cell Distribution Width 12.5, Platelet Count 146L, Mean Platelet Volume 5.3L, Neutrophils (%) (Auto) 61.7, Lymphocytes (%) (Auto) 22.2, Monocytes (%) (Auto) 11.7H, Eosinophils (%) (Auto) 3.9H, Basophils (%) (Auto) 0.6, Sodium Level 142, Potassium Level 4.1#, Chloride Level 111H, Carbon Dioxide Level 21, Anion Gap 10, Blood Urea Nitrogen 12, Creatinine 0.9, Estimat Glomerular Filtration Rate , Glucose Level 139H, Hemoglobin A1c 7.0H, Calcium Level 8.3L, Magnesium Level 1.9, Vitamin D 25- Hydroxy [Pending], 25-Hydroxy Vitamin D2 [Pending], 25-Hydroxy Vitamin D3 [ Pending], Thyroid Stimulating Hormone (TSH) 2.282 Height (Feet): 5 Height (Inches): 6.00 Weight (Pounds): 135 Cardiovascular: normal rate Respiratory/Chest: lungs clear Edema: no edema noted Generalized Scott Gavin MD Sep 08, 2019 12:12
--- NOTE | 2019-09-08 14:07 | NUR ---
CASE MANAGEMENT:REVIEW 89 YR OLD FEMALE FROM HOME D/T SON CC; ABDOMINAL PAIN. UNABLE TO URINATE SI: UTI. CLOSED COMPRESSION FRACTURE 97.6 71 18 149/75 99% ON RA K-3.2 IS: IV MORPHINE 500CC NS BOLUS IV ZOFRAN IV ROCEPHIN URINE CX BLOOD CX CT ABD/PELVIS : TELEMETRY STATUS
[2019-09-08 16:00] VITALS: BP 151/74
[2019-09-08 20:00] VITALS: BP 145/77
--- NOTE | 2019-09-08 20:05 | NUR ---
HAND-OFF: Report given to Anastasia/RN pt in stable condition.
--- NOTE | 2019-09-08 20:07 | NUR ---
NURSE NOTES: Pt received from VLADIMIR Nguyen alert and oriented x4, primarily [place]-speaking with no acute s/s of distress noted. IV site asymptomatic and patent, bed in lowest position. Call light and belongings within reach.
--- NOTE | 2019-09-08 20:11 | Cardiology Progress Note ---
Assessment/Plan Assessment/Plan 1. History of paroxysmal episodes of atrial fibrillation. 2. Tachy-armin syndrome, status post permanent pacemaker implantation.[employer] model L301(per tech not mri compatible) 3. History of chronic and acute compression fractures. 4. Diabetes mellitus type 2. 5. History of humeral fracture. d./w rep mr canales the pacer is not mri compatible but [facility] may perform mri if needed tele atrial paced not on anticoagualtion not in afib now pt will need to fu with her usual cardiologsit Subjective Cardiovascular: Denies: chest pain, lightheadedness, palpitations Gastrointestinal/Abdominal: Reports: constipated; Denies: abdominal pain Genitourinary: Denies: burning Objective Last 24 Hour Vital Signs Date Time Temp Pulse Resp B/P (MAP) Pulse Ox O2 Delivery O2 Flow Rate FiO2 09/08/19 08:36 Room Air 09/08/19 04:11 97.7 72 20 130/76 (94) 97 09/08/19 03:34 70 09/08/19 00:00 96.9 70 20 132/73 (92) 97 09/07/19 23:24 70 09/07/19 21:00 Room Air 09/07/19 20:33 98.8 71 20 154/91 (112) 95 General Appearance: no apparent distress, alert Neck: supple Respiratory/Chest: lungs clear Abdomen: normal bowel sounds, non tender, soft Extremities: no swelling Intake and Output 09/07/19 09/08/19 19:00 07:00 # Bowel Movements 1 1 Laboratory Tests Test 09/08/19 06:07 White Blood Count 6.3 K/UL (4.8-10.8) Red Blood Count 3.78 M/UL (4.20-5.40) L Hemoglobin 12.5 G/DL (12.0-16.0) Hematocrit 34.7 % (37.0-47.0) L Mean Corpuscular Volume 92 FL (80-99) Mean Corpuscular Hemoglobin 33.1 PG (27.0-31.0) H Mean Corpuscular Hemoglobin Concent 36.1 G/DL (32.0-36.0) H Red Cell Distribution Width 12.5 % (11.6-14.8) Platelet Count 146 K/UL (150-450) L Mean Platelet Volume 5.3 FL (6.5-10.1) L Neutrophils (%) (Auto) 61.7 % (45.0-75.0) Lymphocytes (%) (Auto) 22.2 % (20.0-45.0) Monocytes (%) (Auto) 11.7 % (1.0-10.0) H Eosinophils (%) (Auto) 3.9 % (0.0-3.0) H Basophils (%) (Auto) 0.6 % (0.0-2.0) Sodium Level 142 MMOL/L (136-145) Potassium Level 4.1 MMOL/L (3.5-5.1) # Chloride Level 111 MMOL/L (98-107) H Carbon Dioxide Level 21 MMOL/L (21-32) Anion Gap 10 mmol/L (5-15) Blood Urea Nitrogen 12 mg/dL (7-18) Creatinine 0.9 MG/DL (0.55-1.30) Estimat Glomerular Filtration Rate mL/min (>60) Glucose Level 139 MG/DL (74-106) H Hemoglobin A1c 7.0 % (4.3-6.0) H Calcium Level 8.3 MG/DL (8.5-10.1) L Magnesium Level 1.9 MG/DL (1.8-2.4) Vitamin D 25-Hydroxy Pending 25-Hydroxy Vitamin D2 Pending 25-Hydroxy Vitamin D3 Pending Thyroid Stimulating Hormone (TSH) 2.282 uiU/mL (0.358-3.740) Microbiology Date/Time Source Procedure Growth Status 09/06/19 11:55 Blood Blood Culture - Preliminary NO GROWTH AFTER 24 HOURS Resulted 09/06/19 10:59 Blood Blood Culture - Preliminary NO GROWTH AFTER 24 HOURS Resulted 09/06/19 11:00 Urine,Clean Catch Urine Culture - Final Escherichia Coli Complete Clement Clinton MD Sep 08, 2019 20:11
--- NOTE | 2019-09-08 21:10 | General Progress Note ---
Assessment/Plan Assessment/Plan: Assessment - Back pain - minimal diverticulosis - h/o pelvic fractures - s/p chol - OBS - s/p pacemaker Recommendations - await spine evaluation - po as tolerated - follow exam - no plans for GI endoscopy at this time Subjective Allergies: Coded Allergies: No Known Allergies (Unverified , 07/26/15) Subjective above noted confused minimally interactive Objective Last 24 Hour Vital Signs Date Time Temp Pulse Resp B/P (MAP) Pulse Ox O2 Delivery O2 Flow Rate FiO2 09/08/19 08:36 Room Air 09/08/19 04:11 97.7 72 20 130/76 (94) 97 09/08/19 03:34 70 09/08/19 00:00 96.9 70 20 132/73 (92) 97 09/07/19 23:24 70 Intake and Output 09/07/19 09/08/19 19:00 07:00 # Bowel Movements 1 1 Laboratory Tests 09/08/19 06:07: White Blood Count 6.3, Red Blood Count 3.78L, Hemoglobin 12.5, Hematocrit 34.7L , Mean Corpuscular Volume 92, Mean Corpuscular Hemoglobin 33.1H, Mean Corpuscular Hemoglobin Concent 36.1H, Red Cell Distribution Width 12.5, Platelet Count 146L, Mean Platelet Volume 5.3L, Neutrophils (%) (Auto) 61.7, Lymphocytes (%) (Auto) 22.2, Monocytes (%) (Auto) 11.7H, Eosinophils (%) (Auto) 3.9H, Basophils (%) (Auto) 0.6, Sodium Level 142, Potassium Level 4.1#, Chloride Level 111H, Carbon Dioxide Level 21, Anion Gap 10, Blood Urea Nitrogen 12, Creatinine 0.9, Estimat Glomerular Filtration Rate , Glucose Level 139H, Hemoglobin A1c 7.0H, Calcium Level 8.3L, Magnesium Level 1.9, Vitamin D 25- Hydroxy [Pending], 25-Hydroxy Vitamin D2 [Pending], 25-Hydroxy Vitamin D3 [ Pending], Thyroid Stimulating Hormone (TSH) 2.282 Height (Feet): 5 Height (Inches): 6.00 Weight (Pounds): 135 Objective Thin woman NCAT supple CTA RRR abd soft ND, NT no edema Yocasta Ramos MD Sep 08, 2019 21:10
[2019-09-09] VITALS: BP 152/69
[2019-09-09 04:00] VITALS: BP 154/77
[2019-09-09] MEDS: NovoLOG Insulin Flexpen SUBQ SCH ×4 (05:24→22:38)
--- NOTE | 2019-09-09 07:15 | NUR ---
HAND-OFF: Report given to VLADIMIR Stephenson. Plan of care endorsed.
--- NOTE | 2019-09-09 07:48 | NUR ---
NURSE NOTES: Received patient from Evelina Berry. Patient is awake and alert. Following commands. NO complain of pain or discomfort at this time. Fall/ aspiration precautions in place. Call becerra within patients reach. will follow.
[2019-09-09 08:00] VITALS: BP 162/64
[2019-09-09] MEDS: Cephalexin 500mg cap ORAL SCH ×2 (08:59→21:09)
[2019-09-09 11:43] VITALS: BP 132/84
--- NOTE | 2019-09-09 12:00 | NUR ---
NURSE NOTES: Patient's blood sugar result via finger stock is 176. Son at bedside refused sliding scale coverage.
--- NOTE | 2019-09-09 12:46 | Infectious Diseases Prog Note ---
Assessment/Plan Assessment/Plan IMPRESSION: UTI, likely cystitis. L2 and L4 vertebral body fractures. Hypokalemia, hypertension, diabetes mellitus, hypothyroidism, kyphosis. Paraparesis Unsteady gait Dementia RECOMMENDATION: Continue Po Keflex Subjective ROS Limited/Unobtainable: Yes Constitutional: Reports: no symptoms Respiratory: Reports: no symptoms Gastrointestinal/Abdominal: Reports: no symptoms Genitourinary: Reports: no symptoms Musculoskeletal: Reports: pain, other - back pain Allergies: Coded Allergies: No Known Allergies (Unverified , 07/26/15) Objective Vital Signs Last 24 Hour Vital Signs Date Time Temp Pulse Resp B/P (MAP) Pulse Ox O2 Delivery O2 Flow Rate FiO2 09/09/19 11:43 98.6 71 18 132/84 (100) 100 09/09/19 09:00 Room Air 09/09/19 08:00 97.5 72 18 162/64 (96) 100 09/09/19 08:00 70 09/09/19 04:00 98.2 74 20 154/77 (102) 96 09/09/19 04:00 79 09/09/19 00:00 70 09/09/19 00:00 97.0 75 19 152/69 (96) 95 09/08/19 21:00 Room Air 09/08/19 20:00 70 09/08/19 20:00 97.0 73 18 145/77 (99) 97 09/08/19 16:00 70 09/08/19 16:00 98.4 71 18 151/74 (99) 95 Height (Feet): 5 Height (Inches): 6.00 Weight (Pounds): 135 General Appearance: no acute distress HEENT: mucous membranes moist Respiratory/Chest: lungs clear Cardiovascular: normal rate Abdomen: soft, non tender Extremities: no edema Neurologic/Psychiatric: alert, responsive Musculoskeletal: atrophy Current Medications Medications (Trade) Dose Ordered Sig/Yao Route PRN Reason Start Time Stop Time Status Last Admin Dose Admin Acetaminophen (Tylenol) 650 mg Q4H PRN ORAL Mild Pain (Pain Scale 1-3) 09/06/19 18:15 10/06/19 18:14 09/08/19 22:03 Cephalexin (Keflex) 500 mg Q12HR ORAL 09/08/19 12:00 09/15/19 11:59 09/09/19 08:59 Dextrose (Dextrose 50%) 25 ml Q30M PRN IV Hypoglycemia 09/06/19 18:15 10/06/19 18:14 Dextrose (Dextrose 50%) 50 ml Q30M PRN IV Hypoglycemia 09/06/19 18:15 10/06/19 18:14 Insulin Aspart (NovoLOG) BEFORE MEALS AND HS SUBQ 09/06/19 21:00 10/06/19 20:59 09/07/19 21:15 Morphine Sulfate (Morphine Sulfate) 2 mg EVERY 3 HOURS PRN IVP Moderate Pain (Pain Scale 4-6) 09/06/19 18:15 09/13/19 18:14 09/07/19 01:40 Morphine Sulfate (Morphine Sulfate) 4 mg EVERY 3 HOURS PRN IVP Severe Pain (Pain Scale 7-10) 09/06/19 18:15 09/13/19 18:14 Pantoprazole (Protonix) 40 mg DAILY ORAL 09/06/19 18:15 10/06/19 18:14 09/09/19 08:59 Zolpidem Tartrate (Ambien) 5 mg DAILYPRN PRN ORAL Insomnia 09/06/19 18:15 09/13/19 18:14 Juliano Gavin MD Sep 09, 2019 12:46
--- NOTE | 2019-09-09 15:43 | NUR ---
*-* INSURANCE *-* ALL CLINICALS AND REVIEWS HAVE BEEN FAXED TO: NATTY FOSTER: GIOVANNY REF# [id number] P: [phone] F: [phone]
[2019-09-09 16:00] VITALS: BP 156/78
--- NOTE | 2019-09-09 16:13 | NUR ---
CASE MANAGEMENT:REVIEW 09/09/19 SI: UTI.HYPOKALEMIA 98.6 71 18 132/84 100% ON RA IS: KEFLEX PO Q12 PROTONIX PO QD : TELEMETRY STATUS
--- NOTE | 2019-09-09 16:17 | NUR ---
DISCHARGE PLANNING PATIENT IS FROM HOME AND HAS [facility] MESSAGE LEFT FRO DR SCOTT REGARDING DISCHARGE
--- NOTE | 2019-09-09 17:39 | Neurology Progress Note ---
Interim History Interim History Interim History Ms. Tori Silveira is an 89-year-old, right-handed, lady, who does have a past history of hypertension, diabetes mellitus, hypothyroidism , ago during which she fractured her left upper and lower extremities, pacemaker implantation for reasons that are unknown to us, and progressive gait problems. Recently she has also been complaining of increasing low back pain and she was hospitalized for worsening low back and abdominal pain. On being evaluated she was found to have a urinary tract infection and is being treated for that. She feels better. The abdominal pain is better. The low back pain is about the same. She did walk with the PT earlier. She denies any new neurologic symptoms. As per Dr Gavin, her pacemaker is not MRI safe. Review of Systems Neuro Review of Systems Benign. Objective Physical Exam Last Vital Signs Date Time Temp Pulse Resp B/P (MAP) Pulse Ox O2 Delivery O2 Flow Rate FiO2 09/09/19 16:00 98.7 71 18 156/78 (104) 98 09/09/19 09:00 Room Air Neurologic Exam Objective PHYSICAL EXAMINATION: GENERAL: She is a well-developed, well-nourished, pleasant, lady, lying in bed, in no acute distress. HEAD: Normocephalic and atraumatic. NECK: No neck rigidity was observed, she did have decreased range of motion involving the neck. EENT examination: Benign SPINE: She had mild generalized tenderness over the entire spine most marked in the lower lumbar region. There was marked decrease in range of motion in the entire spine. NEUROLOGICAL EXAMINATION: MENTAL STATUS EXAMINATION: She was awake and alert. She was oriented to self, hospital, and August 2019. She did not know the name of the hospital or the date. She was able to recall 3/3 words immediately but could only remember 2/3 after 1 minute and 3 minutes even on the third trial. She knew that Trump was president but could not remember presidents prior to Trump. Her mathematical skills were impaired. Her visuospatial function was also impaired. SPEECH: She had a mild dysarthria. It should be noted that numerous teeth were missing. LANGUAGE: She was able to comprehend and express herself relatively well in [place]. CRANIAL NERVE EXAMINATION: II: The visual padron were intact on confrontation testing. III, IV & : The external ocular movements were full and the pupils 3 mm in diameter equal round regular and reactive sluggishly to light. V: She had normal facial sensations and the temporales, masseters, and pterygoids, functioned normally. VII: She had normal facial expressions and no facial asymmetry. VIII: Hearing was markedly diminished bilaterally she did wear a right hearing aid. She had no nystagmus. IX: The palate moves symmetrically on phonation. X: She had no hoarseness of voice. XI: The sternocleidomastoids and trapezii functioned well. XII: The tongue was in the midline without any fasciculations or atrophy. MOTOR SYSTEM: The tone was normal in all 4 extremities. Examination of muscle mass revealed generalized muscle wasting most marked in the distal lower extremities. Examination of power revealed G 5/5 except for G 4++/5 in the finger extensors, G 4/5 in the iliopsoas, G 4+/5 in the toe extensors and ankle dorsiflexors. The effort was suboptimal and thus the accuracy of these findings is not certain. SENSORY EXAMINATION: She was able to discern between pinprick and light touch all over her body. She was unable to cooperate further sensory modalities. REFLEXES: Trace+ and bilaterally symmetrical at the biceps triceps and brachioradialis. 0 at both knees and ankles. The plantar responses were flexor. COORDINATION: She performed [id number]-hp-nocp testing slowly but not in the dysmetric manner. She was unable to perform zzsq-ko-pykc testing. STANCE: She stood up with support on both sides. GAIT: She took a few steps with support on both sides. Impression/Recommendations Diagnostic Impression DIAGNOSTIC IMPRESSION: 1. Ms. Tori Silveira is an 89-year-old, right-handed, lady , who does have a past history of hypertension, diabetes mellitus, hypothyroidism, ago during which she fractured her left upper and lower extremities, pacemaker implantation for reasons that are unknown to us, and progressive gait problems. 2. Recently she has also been complaining of increasing low back pain and she was hospitalized for worsening low back and abdominal pain. On being evaluated she was found to have a urinary tract infection and is being treated for that. 3.She feels better. The abdominal pain is better. The low back pain is about the same. She did walk with the PT earlier. She denies any new neurologic symptoms. As per Dr Gavin, her pacemaker is not MRI safe. 4. On neurological examination, at this time, she does have problems with orientation, recent and remote memory, visuospatial function, and higher cognitive function. She also has a paraparesis involving the proximal muscles more than the distal muscles and in addition mild finger extensor weakness bilaterally. She is able to discern between pinprick and light touch but is unable to cooperate further sensory modalities. The deep tendon reflexes are significantly diminished in the upper extremities and lost in the lower extremities. She needs support on both sides to stand up. She only takes a few steps with support on both sides. She also complains of tenderness over the low lumbar region. 5. When the radiologist read her chest and abdomen CT scan, fractures of the L2- L4 vertebral bodies with probable acute component at the L4 level was noted. 6. The patient's low back pain is most probably related to significant lumbosacral degenerative joint disease. It is unclear if the patient does not fact have acute fractures that could be contributing. 7. The patient's gait disorder is most probably related to the low back pain, weakness in both lower extremities which may be related to a lumbosacral polyradiculopathy, and/or a neuropathy, and/or disuse and deconditioning. 8. The patient does also exhibit cognitive dysfunction. It is unknown if this is old or new. Recommendations RECOMMENDATIONS: 1. The patient and her family were given an explanation of the above-mentioned findings. 2. Medrol 4 mg tid x 7 days. 3. She should be mobilized with the help of physical and Occupational Therapy. Chris Candelario M.D., M.S.P.H. Neurologist and Clinical Neurophysiologist. Chris Candelario MD Sep 09, 2019 17:39
[2019-09-09] MEDS: Morphine Sulfate 2mg/ml Inj(IV/IM USE ONLY) IVP PRN (19:39)
--- NOTE | 2019-09-09 19:40 | NUR ---
NURSE NOTES: Received report from Seema Singh RN. Pt in stable condition, will continue Addendum: 09/10/19 at 0032 by Rosana Gonzalez RN will continue close monitoring and plan of care.
--- NOTE | 2019-09-09 19:40 | NUR ---
HAND-OFF: Report given to Yesi petersen Rn. Plan of care endorsed. .
--- NOTE | 2019-09-09 20:33 | General Progress Note ---
Assessment/Plan Assessment/Plan: Assessment - Back pain - minimal diverticulosis - h/o pelvic fractures - s/p chol - OBS - s/p pacemaker Recommendations - await spine evaluation - po as tolerated - follow exam - no plans for GI endoscopy at this time Subjective Allergies: Coded Allergies: No Known Allergies (Unverified , 07/26/15) Subjective above noted confused minimally interactive Objective Last 24 Hour Vital Signs Date Time Temp Pulse Resp B/P (MAP) Pulse Ox O2 Delivery O2 Flow Rate FiO2 09/09/19 16:00 75 09/09/19 16:00 98.7 71 18 156/78 (104) 98 09/09/19 12:00 70 09/09/19 11:43 98.6 71 18 132/84 (100) 100 09/09/19 09:00 Room Air 09/09/19 08:00 97.5 72 18 162/64 (96) 100 09/09/19 08:00 70 09/09/19 04:00 98.2 74 20 154/77 (102) 96 09/09/19 04:00 79 09/09/19 00:00 70 09/09/19 00:00 97.0 75 19 152/69 (96) 95 09/08/19 21:00 Room Air Intake and Output 09/08/19 09/09/19 19:00 07:00 Intake Total 840 ml Output Total 200 ml Balance 640 ml Intake Oral 840 ml Output Urine Total 200 ml # Voids 2 # Bowel Movements 2 1 Height (Feet): 5 Height (Inches): 6.00 Weight (Pounds): 135 Objective Thin woman NCAT supple CTA RRR abd soft ND, NT no edema Yocasta Ramos MD Sep 09, 2019 20:33
[2019-09-09 21:00] VITALS: BP 158/75
--- NOTE | 2019-09-09 22:01 | General Progress Note ---
Assessment/Plan Problem List: (1) Closed compression fracture of lumbosacral spine ICD Codes: S32.000A - Wedge compression fracture of unspecified lumbar vertebra , initial encounter for closed fracture SNOMED: 94728936, 596516493 (2) DM (diabetes mellitus) ICD Codes: E11.9 - Type 2 diabetes mellitus without complications SNOMED: 82761968 (3) Degenerative joint disease (DJD) of lumbar spine ICD Codes: M47.816 - Spondylosis without myelopathy or radiculopathy, lumbar region SNOMED: 250813699 (4) Hypothyroidism ICD Codes: E03.9 - Hypothyroidism, unspecified SNOMED: 25830059 (5) HTN (hypertension) ICD Codes: I10 - Essential (primary) hypertension SNOMED: 67125029 (6) Pacemaker ICD Codes: Z95.0 - Presence of cardiac pacemaker SNOMED: 336490645 (7) Urinary tract infection ICD Codes: N39.0 - Urinary tract infection, site not specified SNOMED: 26188556 (8) Hypokalemia ICD Codes: E87.6 - Hypokalemia SNOMED: 68725002 Assessment/Plan: abxs SSI check Vit D follow labs Discussed with Dr Candelario and dr hussein Subjective Allergies: Coded Allergies: No Known Allergies (Unverified , 07/26/15) Subjective abd pain better still with back pain Objective Last 24 Hour Vital Signs Date Time Temp Pulse Resp B/P (MAP) Pulse Ox O2 Delivery O2 Flow Rate FiO2 09/09/19 16:00 75 09/09/19 16:00 98.7 71 18 156/78 (104) 98 09/09/19 12:00 70 09/09/19 11:43 98.6 71 18 132/84 (100) 100 09/09/19 09:00 Room Air 09/09/19 08:00 97.5 72 18 162/64 (96) 100 09/09/19 08:00 70 09/09/19 04:00 98.2 74 20 154/77 (102) 96 09/09/19 04:00 79 09/09/19 00:00 70 09/09/19 00:00 97.0 75 19 152/69 (96) 95 Intake and Output 09/08/19 09/09/19 19:00 07:00 Intake Total 840 ml Output Total 200 ml Balance 640 ml Intake Oral 840 ml Output Urine Total 200 ml # Voids 2 # Bowel Movements 2 1 Height (Feet): 5 Height (Inches): 6.00 Weight (Pounds): 135 Cardiovascular: normal rate Respiratory/Chest: lungs clear Edema: no edema noted Generalized Scott Gavin MD Sep 09, 2019 22:01
--- NOTE | 2019-09-09 23:14 | NUR ---
NURSE NOTES: Received patient from telemetry floor, awake , alert, oriented x 4, maori speaking,patient prefers to use bedside comode with staff assistance, belongings list checked, and signed for, items are accounted for. Oriented to the room, call light is within reach, bed is lowered, locked, alarm is on, will continue to monitor for comfort and safety.
--- NOTE | 2019-09-09 23:15 | NUR ---
HAND-OFF: Report given to VLADIMIR Wilkinson. Pt transferred to [address] [place] [address]. Pt in stable condition.
[2019-09-10] VITALS: BP 145/70
[2019-09-10 04:00] VITALS: BP 139/71
[2019-09-10] MEDS: NovoLOG Insulin Flexpen SUBQ SCH ×4 (05:57→20:56)
[2019-09-10 08:00] VITALS: BP 143/95
--- NOTE | 2019-09-10 08:16 | NUR ---
NURSE NOTES: Patient awake and alert,sitting up in bed and eating breakfast. family member at bedside..Call light within reach.Bed alarm is on.
[2019-09-10] MEDS: Cephalexin 500mg cap ORAL SCH (08:39)
--- NOTE | 2019-09-10 11:49 | General Progress Note ---
Assessment/Plan Problem List: (1) Closed compression fracture of lumbosacral spine ICD Codes: S32.000A - Wedge compression fracture of unspecified lumbar vertebra , initial encounter for closed fracture SNOMED: 02147114, 001935242 (2) DM (diabetes mellitus) ICD Codes: E11.9 - Type 2 diabetes mellitus without complications SNOMED: 95182520 (3) Degenerative joint disease (DJD) of lumbar spine ICD Codes: M47.816 - Spondylosis without myelopathy or radiculopathy, lumbar region SNOMED: 908439119 (4) Hypothyroidism ICD Codes: E03.9 - Hypothyroidism, unspecified SNOMED: 38140700 (5) HTN (hypertension) ICD Codes: I10 - Essential (primary) hypertension SNOMED: 11603821 (6) Pacemaker ICD Codes: Z95.0 - Presence of cardiac pacemaker SNOMED: 862589052 (7) Urinary tract infection ICD Codes: N39.0 - Urinary tract infection, site not specified SNOMED: 80189290 (8) Hypokalemia ICD Codes: E87.6 - Hypokalemia SNOMED: 80091564 Assessment/Plan: Dc abxs SSI check Vit D follow labs Discussed with Dr Candelario was started on steroids Subjective Allergies: Coded Allergies: No Known Allergies (Unverified , 07/26/15) Subjective abd pain better still with back pain Objective Last 24 Hour Vital Signs Date Time Temp Pulse Resp B/P (MAP) Pulse Ox O2 Delivery O2 Flow Rate FiO2 09/10/19 10:19 Room Air 09/10/19 08:00 98.6 69 18 143/95 (111) 99 09/10/19 04:00 97.7 71 20 139/71 (93) 98 09/10/19 00:00 97.2 70 20 145/70 (95) 96 09/09/19 23:12 98.7 09/09/19 21:00 97.5 70 18 158/75 (102) 97 09/09/19 21:00 Room Air 09/09/19 16:00 75 09/09/19 16:00 98.7 71 18 156/78 (104) 98 09/09/19 12:00 70 Intake and Output 09/09/19 09/10/19 19:00 07:00 Intake Total 140 ml Balance 140 ml Intake Oral 140 ml # Voids 1 # Bowel Movements 1 1 Height (Feet): 5 Height (Inches): 6.00 Weight (Pounds): 135 Cardiovascular: normal rate Respiratory/Chest: lungs clear Scott Gavin MD Sep 10, 2019 11:49
[2019-09-10 12:00] VITALS: BP 143/83
--- NOTE | 2019-09-10 12:28 | NUR ---
CASE MANAGEMENT:DISCHARGE PLANNING PATIENT HAS BEEN REFERRED TO [facility] P: F: WILL FOLLOW UP Addendum: 09/10/19 at 1440 by SVETLANA VILLARREAL LVN LVN PATIENT HAS BEEN ACCEPTED TO [facility] P: ROOM 11-B SKILLED WILL FOLLOW UP WITH DR SCOTT REGARDING DISCHARGE
--- NOTE | 2019-09-10 14:48 | NUR ---
DISCHARGE OBTAINED FROM DR SCOTT TRANSPORTATION SCHEDULED WITH AN ETA @ 1600 PM
--- NOTE | 2019-09-10 14:57 | Infectious Diseases Prog Note ---
Assessment/Plan Assessment/Plan IMPRESSION: UTI, likely cystitis, treated L2 and L4 vertebral body fractures. Hypokalemia, hypertension, diabetes mellitus, hypothyroidism, kyphosis. Paraparesis Unsteady gait Dementia RECOMMENDATION: Observe off antibiotic Subjective ROS Limited/Unobtainable: Yes Gastrointestinal/Abdominal: Reports: no symptoms Genitourinary: Reports: no symptoms Musculoskeletal: Reports: pain, other - back Allergies: Coded Allergies: No Known Allergies (Unverified , 07/26/15) Objective Vital Signs Last 24 Hour Vital Signs Date Time Temp Pulse Resp B/P (MAP) Pulse Ox O2 Delivery O2 Flow Rate FiO2 09/10/19 12:00 98.1 18 143/83 (103) 97 09/10/19 10:19 Room Air 09/10/19 08:00 98.6 69 18 143/95 (111) 99 09/10/19 04:00 97.7 71 20 139/71 (93) 98 09/10/19 00:00 97.2 70 20 145/70 (95) 96 09/09/19 23:12 98.7 09/09/19 21:00 97.5 70 18 158/75 (102) 97 09/09/19 21:00 Room Air 09/09/19 16:00 75 09/09/19 16:00 98.7 71 18 156/78 (104) 98 Height (Feet): 5 Height (Inches): 6.00 Weight (Pounds): 135 General Appearance: no acute distress HEENT: mucous membranes moist Respiratory/Chest: lungs clear Cardiovascular: normal rate Abdomen: soft, non tender Extremities: no edema Neurologic/Psychiatric: alert, responsive, motor weakness Current Medications Medications (Trade) Dose Ordered Sig/Yao Route PRN Reason Start Time Stop Time Status Last Admin Dose Admin Acetaminophen (Tylenol) 650 mg Q4H PRN ORAL Mild Pain (Pain Scale 1-3) 09/06/19 18:15 10/06/19 18:14 09/08/19 22:03 Dextrose (Dextrose 50%) 25 ml Q30M PRN IV Hypoglycemia 09/06/19 18:15 10/06/19 18:14 Dextrose (Dextrose 50%) 50 ml Q30M PRN IV Hypoglycemia 09/06/19 18:15 10/06/19 18:14 Insulin Aspart (NovoLOG) BEFORE MEALS AND HS SUBQ 09/06/19 21:00 2/24/20 20:59 09/10/19 05:57 Methylprednisolone (Medrol) 4 mg TIPC ORAL 09/09/19 18:00 09/16/19 13:01 09/10/19 13:06 Morphine Sulfate (Morphine Sulfate) 2 mg EVERY 3 HOURS PRN IVP Moderate Pain (Pain Scale 4-6) 09/06/19 18:15 09/13/19 18:14 09/09/19 19:39 Morphine Sulfate (Morphine Sulfate) 4 mg EVERY 3 HOURS PRN IVP Severe Pain (Pain Scale 7-10) 09/06/19 18:15 09/13/19 18:14 Pantoprazole (Protonix) 40 mg DAILY ORAL 09/06/19 18:15 10/06/19 18:14 09/10/19 08:40 Zolpidem Tartrate (Ambien) 5 mg DAILYPRN PRN ORAL Insomnia 09/06/19 18:15 09/13/19 18:14 Juliano Gavin MD Sep 10, 2019 14:57
--- NOTE | 2019-09-10 15:54 | Neurology Progress Note ---
Interim History Interim History Interim History Ms. Tori Silveira is an 89-year-old, right-handed, lady, who does have a past history of hypertension, diabetes mellitus, hypothyroidism , ago during which she fractured her left upper and lower extremities, pacemaker implantation for reasons that are unknown to us, and progressive gait problems. Recently she has also been complaining of increasing low back pain and she was hospitalized for worsening low back and abdominal pain. On being evaluated she was found to have a urinary tract infection and is being treated for that. She feels a little better. The abdominal pain is better. The low back pain is about the same. She has not walked today. She denies any new neurologic symptoms. Review of Systems Neuro Review of Systems Benign. Objective Physical Exam Last Vital Signs Date Time Temp Pulse Resp B/P (MAP) Pulse Ox O2 Delivery O2 Flow Rate FiO2 09/10/19 12:00 98.1 18 143/83 (103) 97 09/10/19 10:19 Room Air 09/10/19 08:00 69 Neurologic Exam Objective PHYSICAL EXAMINATION: GENERAL: She is a well-developed, well-nourished, pleasant, lady, lying in bed, in no acute distress. HEAD: Normocephalic and atraumatic. NECK: No neck rigidity was observed, she did have decreased range of motion involving the neck. EENT examination: Benign SPINE: She had mild generalized tenderness over the entire spine most marked in the lower lumbar region. There was marked decrease in range of motion in the entire spine. NEUROLOGICAL EXAMINATION: MENTAL STATUS EXAMINATION: She was awake and alert. She was oriented to self, hospital, and August 2019. She did not know the name of the hospital or the date. She was able to recall 3/3 words immediately but could only remember 2/3 after 1 minute and 3 minutes even on the third trial. She knew that Trump was president but could not remember presidents prior to Trump. Her mathematical skills were impaired. Her visuospatial function was also impaired. SPEECH: She had a mild dysarthria. It should be noted that numerous teeth were missing. LANGUAGE: She was able to comprehend and express herself relatively well in [place]. CRANIAL NERVE EXAMINATION: II: The visual padron were intact on confrontation testing. III, IV & : The external ocular movements were full and the pupils 3 mm in diameter equal round regular and reactive sluggishly to light. V: She had normal facial sensations and the temporales, masseters, and pterygoids, functioned normally. VII: She had normal facial expressions and no facial asymmetry. VIII: Hearing was markedly diminished bilaterally she did wear a right hearing aid. She had no nystagmus. IX: The palate moves symmetrically on phonation. X: She had no hoarseness of voice. XI: The sternocleidomastoids and trapezii functioned well. XII: The tongue was in the midline without any fasciculations or atrophy. MOTOR SYSTEM: The tone was normal in all 4 extremities. Examination of muscle mass revealed generalized muscle wasting most marked in the distal lower extremities. Examination of power revealed G 5/5 except for G 4++/5 in the finger extensors, G 4/5 in the iliopsoas - with the right side stronger, G 4+/5 in the toe extensors and ankle dorsiflexors. The effort was suboptimal and thus the accuracy of these findings is not certain. SENSORY EXAMINATION: She was able to discern between pinprick and light touch all over her body. She was unable to cooperate further sensory modalities. REFLEXES: Trace+ and bilaterally symmetrical at the biceps triceps and brachioradialis. 0 at both knees and ankles. The plantar responses were flexor. COORDINATION: She performed xnqwrj-ex-gige testing slowly but not in the dysmetric manner. She was unable to perform rwxe-no-cnxx testing. STANCE & GAIT: Were deferred as she did not want to get out of bed. Impression/Recommendations Diagnostic Impression DIAGNOSTIC IMPRESSION: 1. Ms. Tori Silveira is an 89-year-old, right-handed, lady , who does have a past history of hypertension, diabetes mellitus, hypothyroidism, ago during which she fractured her left upper and lower extremities, pacemaker implantation for reasons that are unknown to us, and progressive gait problems. 2. Recently she has also been complaining of increasing low back pain and she was hospitalized for worsening low back and abdominal pain. On being evaluated she was found to have a urinary tract infection and is being treated for that. 3. She feels a little better. The abdominal pain is better. The low back pain is about the same. She has not walked today. She denies any new neurologic symptoms. 4. On neurological examination, at this time, she does have problems with orientation, recent and remote memory, visuospatial function, and higher cognitive function. She also has a paraparesis involving the proximal muscles more than the distal muscles and in addition mild finger extensor weakness bilaterally. The right lower extremity is stronger today. She is able to discern between pinprick and light touch but is unable to cooperate further sensory modalities. The deep tendon reflexes are significantly diminished in the upper extremities and lost in the lower extremities. She needs support on both sides to stand up. She only takes a few steps with support on both sides. She also complains of tenderness over the low lumbar region. 5. When the radiologist read her chest and abdomen CT scan, fractures of the L2- L4 vertebral bodies with probable acute component at the L4 level was noted. 6. The patient's low back pain is most probably related to significant lumbosacral degenerative joint disease. It is unclear if the patient does not fact have acute fractures that could be contributing. 7. The patient's gait disorder is most probably related to the low back pain, weakness in both lower extremities which may be related to a lumbosacral polyradiculopathy, and/or a neuropathy, and/or disuse and deconditioning. She is minimally stronger in the right leg today. 8. The patient does also exhibit cognitive dysfunction. It is unknown if this is old or new. Recommendations RECOMMENDATIONS: 1. The patient and her family were given an explanation of the above-mentioned findings. 2. Finish Medrol 4 mg tid x 7 days. 3. She should be mobilized with the help of Physical and Occupational Therapy. Chris Candelario M.D., M.S.P.H. Neurologist and Clinical Neurophysiologist. Chris Candelario MD Sep 10, 2019 15:54
[2019-09-10 16:00] VITALS: BP 130/81
[2019-09-10] MEDS ORDERED: ACETAMINOPHEN325 M1 ORAL (16:13)
[2019-09-10] MEDS ORDERED: METHYLPREDNISOLO4 M2 PO (16:28)
[2019-09-10] MEDS ORDERED: MORPHINE SU4 MG/1 ML IVP ×2 (16:30→16:31)
[2019-09-10] MEDS ORDERED: PANTOPRAZOLE SO40 MG ORAL (16:32)
[2019-09-10] MEDS ORDERED: AMBIEN5 MG ORAL (16:33)
[2019-09-10] MEDS ORDERED: NOVOLOG100 UNITS1 (16:34)
--- NOTE | 2019-09-10 16:58 | NUR ---
NURSE NOTES: Patient son waiting for DR sharon Gavin to call before patient transfer to [facility].He wants to talk to the Doctor to get clarification on MRI study he thought Mom was to have.
--- NOTE | 2019-09-10 18:30 | NUR ---
NURSE NOTES: DR Gunner Gavin will be in tomorrow 09/11,to discuss with son regarding patient discharge and plan of care.
--- NOTE | 2019-09-10 19:36 | General Progress Note ---
Assessment/Plan Assessment/Plan: Assessment - Back pain - minimal diverticulosis - h/o pelvic fractures - s/p chol - OBS - s/p pacemaker Recommendations - spine evaluation - po as tolerated - follow exam - no plans for GI endoscopy at this time Subjective Allergies: Coded Allergies: No Known Allergies (Unverified , 07/26/15) Subjective above noted confused minimally interactive Objective Last 24 Hour Vital Signs Date Time Temp Pulse Resp B/P (MAP) Pulse Ox O2 Delivery O2 Flow Rate FiO2 09/10/19 16:00 98.6 67 17 130/81 (97) 96 09/10/19 12:00 98.1 70 18 143/83 (103) 97 09/10/19 10:19 Room Air 09/10/19 08:00 98.6 69 18 143/95 (111) 99 09/10/19 04:00 97.7 71 20 139/71 (93) 98 09/10/19 00:00 97.2 70 20 145/70 (95) 96 09/09/19 23:12 98.7 09/09/19 21:00 97.5 70 18 158/75 (102) 97 09/09/19 21:00 Room Air Intake and Output 09/09/19 09/10/19 19:00 07:00 Intake Total 140 ml Balance 140 ml Intake Oral 140 ml # Voids 1 # Bowel Movements 1 1 Height (Feet): 5 Height (Inches): 6.00 Weight (Pounds): 135 Objective Thin woman NCAT supple CTA RRR abd soft ND, NT no edema Yocasta Ramos MD Sep 10, 2019 19:36
--- NOTE | 2019-09-10 19:50 | NUR ---
HAND-OFF: Report given to Magy GILBERT.
--- NOTE | 2019-09-10 19:53 | NUR ---
NURSE NOTES: Received patient in no apparent distress. A&OX4. IV site patent and intact. Family member at bedside. Bed in lowest position. Call light within reach. Will continue to monitor.
[2019-09-10 20:00] VITALS: BP 137/72
[2019-09-11] VITALS: BP 135/70
[2019-09-11 04:00] VITALS: BP 134/75
[2019-09-11] MEDS: NovoLOG Insulin Flexpen SUBQ SCH ×3 (06:23→16:56)
--- NOTE | 2019-09-11 07:30 | NUR ---
HAND-OFF: Report given to Rita GILBERT.
--- NOTE | 2019-09-11 07:56 | NUR ---
NURSE NOTES: Patient awake and alert ,respirations unlabored.Patient sitting up in bed and eating breakfast.Call light within reach,bed alarm on.
[2019-09-11 08:00] VITALS: BP 162/82
--- NOTE | 2019-09-11 10:34 | Infectious Diseases Prog Note ---
Assessment/Plan Assessment/Plan IMPRESSION: UTI, likely cystitis, treated L2 and L4 vertebral body fractures. Hypokalemia, hypertension, diabetes mellitus, hypothyroidism, kyphosis. Paraparesis Unsteady gait Dementia RECOMMENDATION: Observe off antibiotic Subjective ROS Limited/Unobtainable: Yes Constitutional: Denies: fever Allergies: Coded Allergies: No Known Allergies (Unverified , 07/26/15) Objective Vital Signs Last 24 Hour Vital Signs Date Time Temp Pulse Resp B/P (MAP) Pulse Ox O2 Delivery O2 Flow Rate FiO2 09/11/19 04:00 97.6 70 17 134/75 (94) 98 09/11/19 00:00 97.7 70 17 135/70 (91) 99 09/10/19 21:00 Room Air 09/10/19 20:00 97.6 70 17 137/72 (93) 98 09/10/19 16:00 98.6 67 17 130/81 (97) 96 09/10/19 12:00 98.1 70 18 143/83 (103) 97 Height (Feet): 5 Height (Inches): 6.00 Weight (Pounds): 135 General Appearance: no acute distress HEENT: mucous membranes moist Respiratory/Chest: lungs clear Cardiovascular: normal rate Abdomen: soft, non tender Extremities: no edema Neurologic/Psychiatric: other - sleeping Current Medications Medications (Trade) Dose Ordered Sig/Yao Route PRN Reason Start Time Stop Time Status Last Admin Dose Admin Acetaminophen (Tylenol) 650 mg Q4H PRN ORAL Mild Pain (Pain Scale 1-3) 09/06/19 18:15 10/06/19 18:14 09/08/19 22:03 Dextrose (Dextrose 50%) 25 ml Q30M PRN IV Hypoglycemia 09/06/19 18:15 10/06/19 18:14 Dextrose (Dextrose 50%) 50 ml Q30M PRN IV Hypoglycemia 09/06/19 18:15 10/06/19 18:14 Insulin Aspart (NovoLOG) BEFORE MEALS AND HS SUBQ 09/06/19 21:00 10/06/19 20:59 09/11/19 06:23 Methylprednisolone (Medrol) 4 mg TIPC ORAL 09/09/19 18:00 09/16/19 13:01 09/11/19 09:28 Morphine Sulfate (Morphine Sulfate) 2 mg EVERY 3 HOURS PRN IVP Moderate Pain (Pain Scale 4-6) 09/06/19 18:15 09/13/19 18:14 09/09/19 19:39 Morphine Sulfate (Morphine Sulfate) 4 mg EVERY 3 HOURS PRN IVP Severe Pain (Pain Scale 7-10) 09/06/19 18:15 09/13/19 18:14 Pantoprazole (Protonix) 40 mg DAILY ORAL 09/06/19 18:15 10/06/19 18:14 09/11/19 09:28 Zolpidem Tartrate (Ambien) 5 mg DAILYPRN PRN ORAL Insomnia 09/06/19 18:15 09/13/19 18:14 Juliano Gavin MD Sep 11, 2019 10:34
--- NOTE | 2019-09-11 11:35 | NUR ---
*-* INSURANCE *-* ALL CLINICALS AND REVIEWS HAVE BEEN FAXED TO: NATTY FOSTER: GIOVANNY REF# [id number] P: [phone] F: [phone]
[2019-09-11 12:00] VITALS: BP 131/81
[2019-09-11] MEDS ORDERED: ULTRAM50 MG ORAL (13:52)
--- NOTE | 2019-09-11 15:40 | NUR ---
CASE MANAGEMENT:DISCHARGE PLAN NOTE PATIENT DISCHARGED TO HOME WITH HOME HEALTH CLINICALS FAXED TO [facility] P: F; [facility] BLS TRANSPORTATION (EXT [phone]) FROM [facility] SCHEDUL[place] ETA @ 1700 PM DUNCAN HOLDER
[2019-09-11 16:00] VITALS: BP 133/92
--- NOTE | 2019-09-11 18:23 | NUR ---
NURSE NOTES: Discharge with discharge instructions,patient IV removed and ID hospital band removed.Patient has personal belongings.patient son is here and [facility] is her to transport patient home. .Patient son picked up discharge prescriptions from pharmacy.
--- NOTE | 2019-09-11 21:31 | General Progress Note ---
Assessment/Plan Assessment/Plan: Assessment - Back pain - minimal diverticulosis - h/o pelvic fractures - s/p chol - OBS - s/p pacemaker Recommendations - spine evaluation - po as tolerated - follow exam - no plans for GI endoscopy at this time Subjective Allergies: Coded Allergies: No Known Allergies (Unverified , 07/26/15) Subjective above noted confused minimally interactive Objective Last 24 Hour Vital Signs Date Time Temp Pulse Resp B/P (MAP) Pulse Ox O2 Delivery O2 Flow Rate FiO2 09/11/19 16:00 98.1 74 17 133/92 (106) 97 09/11/19 12:00 98.0 71 16 131/81 (98) 98 09/11/19 09:00 Room Air 09/11/19 08:00 97.8 72 17 162/82 (108) 99 09/11/19 04:00 97.6 70 17 134/75 (94) 98 09/11/19 00:00 97.7 70 17 135/70 (91) 99 Intake and Output 09/10/19 09/11/19 19:00 07:00 Intake Total 240 ml Balance 240 ml Intake Oral 240 ml # Voids 2 # Bowel Movements 1 Height (Feet): 5 Height (Inches): 6.00 Weight (Pounds): 135 Objective Thin woman NCAT supple CTA RRR abd soft ND, NT no edema Yocasta Ramos MD Sep 11, 2019 21:31
--- NOTE | 2019-09-15 15:53 | NUR ---
*-* INSURANCE *-* PATIENT DISCAHRGE INSTRUCTIONS FAXED D/C SUMMARY NOT IN THE SYSTEM NATTY FOSTER: GIOVANNY REF# [id number] P: [phone] F: [phone]
--- NOTE | 2019-09-16 11:55 | Discharge Summary ---
Discharge Summary Discharge Summary _ DATE OF ADMISSION: 09/06/2019 DATE OF DISCHARGE: 09/11/2019 DISCHARGED BY: Dr. Scott Gavin REASON FOR ADMISSION: 89 years old female with past medical history of hypothyroidism, diabetes mellitus, hypertension, status post pacemaker, status post left hip surgery , presented with abdominal pain and low back pain. Recently patient was unable to move around. Laboratory work-up revealed no leukocytosis, stable hemoglobin and hematocrit. Potassium 3.2. Lactic acid 3.7. Blood glucose 225. BUN 21, creatinine 1.1. Troponin negative. Urinalysis revealed +3 leukocyte esterase , pyuria and moderate bacteria , +2 protein , +2 glucose. Patient subsequently admitted for further management CONSULTANTS: manager power Dr. Clinton neurologist Dr. Candelario ID specialist Dr. Juliano Ba GI specialist Dr. Ramos [facility] COURSE: Patient admitted. and started on empiric antibiotic for UTI. Pain management was addressed. Per neurologist , low back pain was most likely related to significant lumbosacral degenerative joint disease. Gait disorder was most probably related to low back pain, weakness in both lower extremities related to lumbosacral polyradiculopathy and /or neuropathy and/ or disuse or deconditioning. Patient started on Medrol Dosepak. Patient was mobilized with the help of physical therapist. Fall precaution maintained. Urine culture revealed E. coli. Blood cultures were negative. Patient completed treatment for UTI while in the hospital. Renal parameters and electrolytes were closely monitored. Electrolytes/ potassium replaced. Nephrotoxic's were avoided.. [employer] ([facility]ad) followed. Patient was unable to have MRI due to pacemaker. [employer]ad) discussed with family that pacemaker is not compatible with MRI study at this facility , but [facility] may perform MRI if needed. 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 Patient had a history of paroxysmal atrial fibrillation, but was not in atrial fibrillation this time. Telemetry showed atrial pacing Patient had minimal diverticular disease , status post cholecystectomy. No plans for endoscopy at this time. Blood sugar was managed with sliding scale of insulin. GI prophylaxis provided. Supportive care provided. Patient clinically stabilized and was ready for discharge home with home health services. FINAL DIAGNOSES: Low back pain due to significant lumbosacral degenerative joint disease L2 and L4 vertebral body fracture/closed compression fracture of lumbosacral spine E. coli UTI Hypokalemia Hypertension Diabetes mellitus type 2 Hypothyroidism Kyphosis Paraparesis Unsteady gait Dementia Minimal diverticulosis Status post cholecystectomy Tachybradycardia syndrome,, status post pacemaker History of paroxysmal atrial fibrillation DISCHARGE MEDICATIONS: See Medication Reconciliation list. DISCHARGE INSTRUCTIONS: Patient was discharged home with home health services. Follow up with primary care provider in one week. I have been assigned to dictate discharge summary for this account. I was not involved in the patient's management. was regular Yoana Miller NP Sep 16, 2019 11:55
== END 2019-09-11 18:29 | disposition home health service (06) | DRG 690 ==
LOC: EDBD 10:44 → EMR 11:35 → 2E 13:54 → EDBEDREQ 16:01 → 2E 19:23 → 4E 09-09 22:23
DX: N39.0 Urinary tract infection, site not specified (principal); S32.029A Unspecified fracture of second lumbar vertebra, initial encounter for closed fracture; S32.049A Unspecified fracture of fourth lumbar vertebra, initial encounter for closed fracture; G82.20 Paraplegia, unspecified; B96.20 Unspecified Escherichia coli [E. coli] as the cause of diseases classified elsewhere; X58.XXXA Exposure to other specified factors, initial encounter; E87.6 Hypokalemia; Z95.0 Presence of cardiac pacemaker; E03.9 Hypothyroidism, unspecified; E11.9 Type 2 diabetes mellitus without complications; I10 Essential (primary) hypertension; Z90.49 Acquired absence of other specified parts of digestive tract; M40.209 Unspecified kyphosis, site unspecified; S32.020D Wedge compression fracture of second lumbar vertebra, subsequent encounter for fracture with routine healing; X58.XXXD Exposure to other specified factors, subsequent encounter; F03.90 Unspecified dementia, unspecified severity, without behavioral disturbance, psychotic disturbance, mood disturbance, and anxiety; Z91.81 History of falling; G89.29 Other chronic pain; M54.5 Low back pain; R26.81 Unsteadiness on feet
CPT/HCPCS: 36415; 74177; 80048; 80053; 80061; 81003; 82306; 82607; 82746; 82962; 83036; 83605; 83690; 83735; 84165; 84443; 84484; 85025; 85610; 85651; 85730; 86592; 86850; 86900; 86901; 87040; 87086; 87181; 96374; 99285; J1815; J2405; J7030; J8499